=== PATIENT | female | born 1985 | race African-American/Black ===

== ENCOUNTER 2022-04-19 15:56 | Inpatient (IN) | payer MEDICARE, MEDICAID, SELFPAY ==
[2022-04-19 16:13] VITALS: BP 116/74; BP 123/62; PULSE 78; PULSE 89; RESP 18; TEMP 36.5; O2SAT 95; O2SAT 98; BMI 37.0
[2022-04-19 16:50] LABS: Appearance Urine Clear; Color Urine Yellow; Glucose Urine UA Negative (Negative); Leukocyte Esterase Urine Negative (Negative); Nitrite Urine Negative (Negative); Urine Blood Negative (Negative); Urine Ketones Negative (Negative); Urine Protein Negative (Neg-Trace)
[2022-04-19 16:53] LABS: Bacteria Urine None Seen (None Seen); Hyaline Casts Urine 0-2 /LPF (0-2); RBC Urine 0-2 /HPF (0-2); WBC Urine 0-5 /HPF (0-5)
--- NOTE | 2022-04-19 17:00 | ED_ITS ---
HPI - General Adult General Chief complaint: Psychiatric Symptoms Stated complaint: crisis Time Seen by Provider: 04/19/22 16:13 Source: patient and police History of Present Illness HPI narrative: This is a 37-year-old female with a history of psychosis, who has been in a respite facility for the last 4 or 5 days. The patient apparently has not been cooperative with taking medications and has become paranoid and agitated. Patient is somewhat evasive when asked about taking medicines, states that she thought they were p.r.n.. The patient denies wanting to hurt herself or anybody else. She denies hearing voices. She denies any physical complaints except mild intermittent toothache, and a callus on her foot. Related Data Home Medications Medication Instructions Recorded Confirmed clonidine HCl 0.1 mg tablet 1 tab PO BEDTIME 04/19/22 04/19/22 clonidine HCl 0.1 mg tablet 1 tab PO BID PRN Anxiety 04/19/22 04/19/22 guanfacine 1 mg tablet,extended 1 tab PO QAM 04/19/22 04/19/22 release 24 hr (Intuniv ER) hydroxyzine pamoate 25 mg capsule 1 cap PO TID PRN Anxiety 04/19/22 04/19/22 Allergies Allergy/AdvReac Type Severity Reaction Status Date / Time No Known Allergies Allergy Unverified 03/16/20 18:37 Review of Systems Review of Systems: Yes all other systems are reviewed and are negative Constitutional: Constitutional: Reports as per HPI and Denies fever(s) Eyes: Eyes: Reports as per HPI and Reports no additional eye complaints ENT: Reports system reviewed and no additional complaints, except as documented, Reports as per HPI, Denies nasal congestion, Denies nasal discharge and Denies sore throat Comments: Dental pain Cardiovascular: Cardiovascular: Reports as per HPI, Denies chest pain and Denies dyspnea Respiratory: Respiratory: Reports as per HPI, Denies cough and Denies dyspnea Gastrointestinal: Gastrointestinal: Reports as per HPI, Denies abdominal pain, Denies diarrhea and Denies vomiting Genitourinary: Genitourinary: Reports as per HPI, Denies hematuria, Denies urinary frequency and Denies dysuria Musculoskeletal: Musculoskeletal: Reports no additional musculoskeletal complaints and Denies numbness Integumentary/Breasts: Skin/Breast: Reports as per HPI and Denies rash Comments: Callus on foot, chronic Neurologic: Reports as per HPI, Denies focal weakness and Denies numbness Psychiatric: Psychiatric: Reports no additional psychiatric complaints and Reports as per HPI Endocrine: Endocrine: Reports no additional endocrine complaints and Reports as per HPI Hematologic/Lymphatic: Hematologic/Lymphatic: Reports no additional hematologic/lymphatic complaints, Reports as per HPI and Reports other (No peripheral edema) [facility] Social History Social History Alcohol intake: current Alcohol intake frequency: holidays/special occasions only Patient Tobacco Use Status: Current someday Tobacco user Smoked in Last 30 Days: Yes Substance Use Type: Marijuana Substance Use Frequency: Daily Last Used Substance: Just Prior to Admission Any prior treatment program specific to substance use: No Advance Directives: No Advance Directives Information Provided: Yes Physical Exam ED Vital Signs: Vital Signs - 24 hr 04/19/22 16:13 Temperature 97.7 F Pulse Rate 89 Respiratory Rate 18 Blood Pressure 123/62 Pulse Oximetry 95 Oxygen Delivery Method Room Air BMI result Body Mass Index 37.0 Const Other: Patient initially at desk, asking for ketchup and crackers. Patient ambulates normally. Patient does not appear agitated at this time. Affect blunted. General: no acute distress Orientation/consciousness: patient oriented x3 HENMT Head: Yes normal to inspection General nose exam: Normal external nose present Mouth: moist mucous membranes Throat: Yes posterior oropharynx normal, Yes tonsils normal and Yes uvula midline Eyes Eyelids: Yes eyelids normal Conjunctivae: conjunctivae normal Pupils: Equal, round and reactive pupils present Neck Neck: Yes supple Resp Effort & Inspection: normal respiratory effort Auscultation: clear to auscultation bilaterally Cardio Rate: regular rate Rhythm: regular rhythm Heart sounds: S1 normal heart sound present, S2 normal heart sound present, no gallops, no murmurs and no rubs GI Inspection: No distended Palpation (GI): Soft to palpation and nontender Auscultation: normal bowel sounds Skin General skin exam: other (Warm and dry) Neuro General: patient oriented x3 and CN's II-XI intact bilaterally Cranial nerves: Yes Equal, round and reactive pupils present Extrem General: Yes no pedal edema Psych Affect: normal affect Attitude: cooperative Course Course Course Narrative: Patient not compliant with her medications, was reportedly agitated and paranoid. Patient was cooperative my evaluation. Patient is medically clear for psychiatric admission. Medical Decision Making Lab Data Lab results reviewed: Yes I reviewed the patient's lab results. Result diagrams: 04/19/22 20:23 04/19/22 20:23 Labs: Lab Results 04/19/22 04/19/22 04/19/22 Range/Units 16:40 16:40 16:40 WBC (4.8-10.8) X10*3/uL RBC (4.20-5.50) X10*6/uL Hgb (12.0-16.0) g/dl Hct (37.0-47.0) % MCV (80.0-98.0) fL MCH (27.0-33.0) pg MCHC (31.0-35.0) g/dl RDW (11.0-16.0) % Plt Count (160-400) X10*3/uL MPV (9.4-12.3) fL Immature Gran % (Auto) (0.0-0.4) % Neut % (Auto) (45-73) % Lymph % (Auto) (20-40) % [place] % (Auto) (2-11) % Eos % (Auto) (0-4) % Baso % (Auto) (0-2) % Lymph # (Auto) (1.2-4.9) X10*3/uL [place] # (Auto) (0.1-1.2) X10*3/uL Eos # (Auto) (0.0-0.4) X10*3/uL Baso # (Auto) (0.0-0.2) X10*3/uL Abs Immat Gran (auto) (0.00-0.03) X10*3/uL Absolute Neuts (auto) (2.0-8.3) x10*3/uL Absolute Nucleated RBC (0.0-0.012) X10*3/uL Nucleated RBC % (auto) (0.0-0.2) /100WBC Sodium (135-145) mmol/L Potassium (3.3-5.1) mmol/L Chloride (96-108) mmol/L Carbon Dioxide (22-29) mmol/L Anion Gap (12-20) BUN (9-16) mg/dL Creatinine (0.5-1.4) mg/dL Estim Creat Clear Calc Estimated GFR Random Glucose (60-115) mg/dL Calcium (8.4-10.2) mg/dL Total Bilirubin (0.0-1.0) mg/dL AST (5-31) U/L ALT (0-31) U/L Alkaline Phosphatase (39-117) U/L Total Protein (6.5-8.0) g/dL Albumin (3.5-5.0) g/dL Urine Color Yellow Urine Appearance Clear Urine pH 6.0 (5.0-9.0) Ur Specific [place] 1.010 (1.005-1.025) Urine Protein Negative (Neg-Trace) mg/dL Urine Glucose (UA) Negative (Negative) mg/dL Urine Ketones Negative (Negative) mg/dL Urine Blood Negative (Negative) Urine Nitrite Negative (Negative) Ur Leukocyte Esterase Negative (Negative) Urine RBC 0-2 (0-2) /HPF Urine WBC 0-5 (0-5) /HPF Ur Squamous Epith Cells 3-5 (0-2) /HPF Urine Bacteria None Seen (None Seen) Hyaline Casts 0-2 (0-2) /LPF Urine Opiates Screen Not Detected (Not Detect) Urine Fentanyl Screen Not Detected (Not Detect) Ur Barbiturates Screen Not Detected (Not Detect) Ur Phencyclidine Scrn Not Detected (Not Detect) Ur Amphetamines Screen Not Detected (Not Detect) U Benzodiazepines Scrn Not Detected (Not Detect) Urine Cocaine Screen Not Detected (Not Detect) U Marijuana (THC) Screen POSITIVE H (Not Detect) COVID-19 (MYESHA) Negative (Negative) COVID-19 Clin Com See Note 04/19/22 04/19/22 Range/Units 20:23 20:23 WBC 10.7 (4.8-10.8) X10*3/uL RBC 3.99 L (4.20-5.50) X10*6/uL Hgb 12.5 (12.0-16.0) g/dl Hct 37.3 (37.0-47.0) % MCV 93.5 (80.0-98.0) fL MCH 31.3 (27.0-33.0) pg MCHC 33.5 (31.0-35.0) g/dl RDW 12.7 (11.0-16.0) % Plt Count 288 (160-400) X10*3/uL MPV 10.6 (9.4-12.3) fL Immature Gran % (Auto) 0.2 (0.0-0.4) % Neut % (Auto) 57.9 (45-73) % Lymph % (Auto) 31.3 (20-40) % [place] % (Auto) 7.9 (2-11) % Eos % (Auto) 1.9 (0-4) % Baso % (Auto) 0.8 (0-2) % Lymph # (Auto) 3.4 (1.2-4.9) X10*3/uL [place] # (Auto) 0.9 (0.1-1.2) X10*3/uL Eos # (Auto) 0.2 (0.0-0.4) X10*3/uL Baso # (Auto) 0.1 (0.0-0.2) X10*3/uL Abs Immat Gran (auto) 0.02 (0.00-0.03) X10*3/uL Absolute Neuts (auto) 6.2 (2.0-8.3) x10*3/uL Absolute Nucleated RBC 0.000 (0.0-0.012) X10*3/uL Nucleated RBC % (auto) 0.0 (0.0-0.2) /100WBC Sodium 141 (135-145) mmol/L Potassium 3.8 (3.3-5.1) mmol/L Chloride 106 (96-108) mmol/L Carbon Dioxide 25 (22-29) mmol/L Anion Gap 14 (12-20) BUN 10 (9-16) mg/dL Creatinine 0.67 (0.5-1.4) mg/dL Estim Creat Clear Calc 142.3 Estimated GFR > 60 Random Glucose 73 (60-115) mg/dL Calcium 9.0 (8.4-10.2) mg/dL Total Bilirubin 0.3 (0.0-1.0) mg/dL AST 15 (5-31) U/L ALT < 6 (0-31) U/L Alkaline Phosphatase 68 (39-117) U/L Total Protein 6.6 (6.5-8.0) g/dL Albumin 4.1 (3.5-5.0) g/dL Urine Color Urine Appearance Urine pH (5.0-9.0) Ur Specific [place] (1.005-1.025) Urine Protein (Neg-Trace) mg/dL Urine Glucose (UA) (Negative) mg/dL Urine Ketones (Negative) mg/dL Urine Blood (Negative) Urine Nitrite (Negative) Ur Leukocyte Esterase (Negative) Urine RBC (0-2) /HPF Urine WBC (0-5) /HPF Ur Squamous Epith Cells (0-2) /HPF Urine Bacteria (None Seen) Hyaline Casts (0-2) /LPF Urine Opiates Screen (Not Detect) Urine Fentanyl Screen (Not Detect) Ur Barbiturates Screen (Not Detect) Ur Phencyclidine Scrn (Not Detect) Ur Amphetamines Screen (Not Detect) U Benzodiazepines Scrn (Not Detect) Urine Cocaine Screen (Not Detect) U Marijuana (THC) Screen (Not Detect) COVID-19 (MYESHA) (Negative) COVID-19 Clin Com Discharge Plan Discharge Clinical Impression: MDD (major depressive disorder) Patient Disposition: Admitted As Inpatient Interventions: Admission Worksheet (ED) Last Done: 04/19/22 23:01 Discharge Date/Time: 04/19/22 23:02
[2022-04-19 17:03] LABS: Amphetamine Screen Urine Not Detected (Not Detect); Barbiturates, Urine Not Detected (Not Detect); Benzodiazepines Screen Urine Not Detected (Not Detect); Cannabinoid Screen Urine POSITIVE (Not Detect); Cocaine Screen Urine Not Detected (Not Detect); Fentanyl, urine Not Detected (Not Detect); Opiate Screen Urine Not Detected (Not Detect); Phencyclidine Screen Urine Not Detected (Not Detect)
[2022-04-19 17:13] LABS: COVID-19 Test Negative (Negative); IDNOW Serial# 16C4AD1C
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
--- NOTE | 2022-04-19 18:08 | MHC.CARE ---
CARE Team spoke to [facility] who reports that pt was evaluated in the community and is an inpatient bedsearch. Evaluating clinician reports that pt was administratively discharged from [facility] on 04/15 and was accepted to [facility] on 04/16 without knowing that information. Pt has been displaying bizarre and unpredictable behaviors at [facility]. Pt has been refusing medications and has a hx of aggressive and impulsive behaviors.
[2022-04-19 20:27] LABS: MANUAL DIFF FLAG NO
[2022-04-19 20:29] LABS: Basophils Absolute Auto 0.1 X10*3/uL (0.0-0.2); Basophils Percent Auto 0.8 % (0-2); Eosinophils Absolute Auto 0.2 X10*3/uL (0.0-0.4); Eosinophils Percent Auto 1.9 % (0-4); Hematocrit 37.3 % (37.0-47.0); Hemoglobin 12.5 g/dl (12.0-16.0); Imm Gran Abs Auto 0.02 X10*3/uL (0.00-0.03); Imm Gran Pct Auto 0.2 % (0.0-0.4); Lymphocytes Absolute Auto 3.4 X10*3/uL (1.2-4.9); Lymphocytes Percent Auto 31.3 % (20-40); Mean Corpuscular HGB Conc 33.5 g/dl (31.0-35.0); Mean Corpuscular Hemoglobin 31.3 pg (27.0-33.0); Mean Corpuscular Volume 93.5 fL (80.0-98.0); Mean Platelet Volume 10.6 fL (9.4-12.3); Monocytes Absolute Auto 0.9 X10*3/uL (0.1-1.2); Monocytes Percent Auto 7.9 % (2-11); Neutrophils Absolute Auto 6.2 x10*3/uL (2.0-8.3); Neutrophils Percent Auto 57.9 % (45-73); Platelet Count 288 X10*3/uL (160-400); Red Blood Count 3.99 X10*6/uL (4.20-5.50); Red Cell Distribution Width 12.7 % (11.0-16.0); White Blood Count 10.7 X10*3/uL (4.8-10.8)
[2022-04-19 20:50] LABS: Alanine Aminotransferase < 6 U/L (0-31); Albumin Level 4.1 g/dL (3.5-5.0); Alkaline Phosphatase 68 U/L (39-117); Anion Gap 14 (12-20); Aspartate Amino Transferase 15 U/L (5-31); Bilirubin Total 0.3 mg/dL (0.0-1.0); Blood Urea Nitrogen 10 mg/dL (9-16); Carbon Dioxide 25 mmol/L (22-29); Chloride 106 mmol/L (96-108); Creatinine Clr Calc Pharmacy 142.3; Estimated Glomerular Filt Rate > 60; Glucose Random 73 mg/dL (60-115); Potassium 3.8 mmol/L (3.3-5.1); Sodium 141 mmol/L (135-145); Total Protein 6.6 g/dL (6.5-8.0)
--- NOTE | 2022-04-20 07:23 | PHA.MEDREC ---
Pharmacy Consult ? Medication Reconciliation RN has completed the medication reconciliation. Pharmacy reviewed
[2022-04-20 08:32] LABS: Cholesterol 143 mg/dL; HDL Cholesterol 48 mg/dL; LDL Cholesterol Calculated 81 mg/dl; Magnesium 1.9 mg/dL (1.6-2.6); Triglycerides 70 mg/dL
[2022-04-20] MEDS: guanFACINE HCl ER 1 MG TAB.ER.24H PO (08:40)
[2022-04-20 08:41] LABS: Estimated Average Glucose 108 mg/dL; Hemoglobin A1c % 5.4 %
[2022-04-20 08:55] LABS: Free T4 (Free Thyroxine) 0.85 ng/dL (0.71-1.85); Thyroid Stimulating Hormone 2.34 uIU/mL (0.32-4.0)
[2022-04-20 09:07] LABS: Folate 11.6 ng/mL (> or = 4.0); Vitamin B12 205 pg/mL (200-900)
[2022-04-20] MEDS: methADONE HCl 20 MG/2 ML ORAL.CONC 25 MG PO (09:17)
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
[2022-04-20] MEDS: polyethylene glycoL 3350 17 GM POWD.PACK PO ×2 (10:44→20:37)
[2022-04-20] MEDS: Milk of Magnesia 30 ML ORAL.SUSP PO (14:17)
[2022-04-20] MEDS: Sennosides/Docusate Sodium TABLET 1 TAB PO (14:43)
[2022-04-20] MEDS: Hydrocortisone 2.5 % Rectal Cr 30 GM TUBE 1 APPL PR ×2 (15:50→18:54)
[2022-04-20] MEDS: LORazepam 1 MG TABLET PO ×2 (15:50→18:44)
[2022-04-20 18:00] VITALS: BP 128/76; PULSE 72; TEMP 36.7; O2SAT 98
[2022-04-20] MEDS: cloNIDine HCL 0.1 MG TABLET PO ×2 (18:44→20:37)
[2022-04-20] MEDS: hydrOXYzine HCL 25 MG TABLET PO (18:45)
[2022-04-20] MEDS: Ibuprofen 600 MG TABLET PO (18:45)
[2022-04-20] MEDS: Mineral Oil/Petrolatum,White 106 GM Tube 1 APPL TOPICAL (18:55)
[2022-04-20] MEDS: Acetaminophen 325 MG TABLET 650 MG PO (20:34)
[2022-04-20] MEDS: traZODone HCL 50 MG TABLET PO (20:34)
[2022-04-21] MEDS: Ibuprofen 600 MG TABLET PO ×2 (05:00→13:39)
[2022-04-21] MEDS: Hydrocortisone 2.5 % Rectal Cr 30 GM TUBE 1 APPL PR ×3 (05:00→20:21)
[2022-04-21] MEDS: LORazepam 1 MG TABLET PO ×2 (05:00→13:51)
[2022-04-21] MEDS: Acetaminophen 325 MG TABLET 650 MG PO ×2 (05:00→13:39)
[2022-04-21 06:00] VITALS: BP 117/70; PULSE 62; RESP 20; TEMP 36.6; O2SAT 100
[2022-04-21] MEDS: guanFACINE HCl ER 1 MG TAB.ER.24H PO (08:25)
[2022-04-21] MEDS: methADONE HCl 20 MG/2 ML ORAL.CONC 25 MG PO (08:25)
[2022-04-21] MEDS: polyethylene glycoL 3350 17 GM POWD.PACK PO (08:27)
[2022-04-21] MEDS: hydrOXYzine HCL 25 MG TABLET PO ×2 (08:34→22:04)
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
[2022-04-21] MEDS: Mineral Oil/Petrolatum,White 106 GM Tube 1 APPL TOPICAL (15:00)
[2022-04-21 16:30] VITALS: PULSE 72; TEMP 36.6; O2SAT 98
[2022-04-21] MEDS: Ibuprofen 800 MG TABLET PO ×2 (18:26→23:06)
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
[2022-04-21] MEDS: oxyCODONE HCl Immed Release 5 MG TABLET PO (20:13)
[2022-04-21] MEDS: Lidocaine 5 % Ointment 35 GM 1 APPL TOPICAL ×2 (20:14→23:07)
[2022-04-21] MEDS: cloNIDine HCL 0.1 MG TABLET PO ×2 (20:14→22:04)
[2022-04-22] MEDS: oxyCODONE HCl Immed Release 5 MG TABLET PO ×3 (01:32→18:45)
[2022-04-22] MEDS: cloNIDine HCL 0.1 MG TABLET PO ×2 (01:33→20:20)
[2022-04-22] MEDS: Ibuprofen 800 MG TABLET PO ×2 (06:02→12:05)
[2022-04-22] MEDS: Acetaminophen 325 MG TABLET 650 MG PO ×2 (06:03→12:04)
[2022-04-22] MEDS: Lidocaine 5 % Ointment 35 GM 1 APPL TOPICAL ×3 (06:04→20:22)
[2022-04-22] MEDS: guanFACINE HCl ER 1 MG TAB.ER.24H PO (09:12)
[2022-04-22] MEDS: Sennosides/Docusate Sodium TABLET 1 TAB PO (09:12)
[2022-04-22] MEDS: polyethylene glycoL 3350 17 GM POWD.PACK PO (09:13)
[2022-04-22] MEDS: methADONE HCl 20 MG/2 ML ORAL.CONC 25 MG PO (09:13)
[2022-04-22] MEDS: LORazepam 1 MG TABLET PO ×2 (10:46→20:19)
[2022-04-22] MEDS: hydrOXYzine HCL 25 MG TABLET PO ×2 (12:05→18:45)
[2022-04-22] MEDS: LORazepam 1 MG TABLET 2 MG PO (13:43)
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
[2022-04-22] MEDS: HaloperidoL 5 MG TABLET PO ×2 (13:56→20:19)
[2022-04-22] MEDS: Mineral Oil/Petrolatum,White 106 GM Tube 1 APPL TOPICAL (13:57)
--- NOTE | 2022-04-22 16:54 | HO.PSYCHPN ---
Subjective Subjective Date of Service: 04/22/22 Reason For Visit: crisis Subjective Notes: Valdes Warning and Conditional Voluntary Healthcare Proxy: No Guardianship: No Medical Problems Affecting Mental Status: No Interim History: Discussed with team. Pt was administered haldol 5 mg and ativan 2 mg as stat order today due to agitation, threatening another pt, verbally aggressive, yelling. Reviewed hospitalist consult for hemorrhoids, much appreciated. I spoke with pt. She states I flipped out, it was due to the pain. Says oxycodone has been helping, Thank god for the oxy. She also reports benefit on the haldol, once they gave me the pills she felt calm, willing to trial haldol and ativan as scheduled medications. Pt says she is not really a fan of intuniv but i?ll take it just in case. Pt discloses other stressors for her agitation, i.e. this environment itself is a little, trails off and says you now what i mean. Says it wont be as tense mentally when I get out into the world, i'm an outdoorsy person. 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 I just showed my feelings. Medication Compliance: Yes Side effects from medications: No Attending Groups: Yes Review of Systems Acute medical concerns: No Medical Review of Systems: unchanged Mental Status Exam Mental Status Exam Narrative: A&O. In hospital attire, overweight, somewhat unkempt. Good eye contact, attentive. No Tics or Tremors. No abnormal involuntary movements. Guarded, difficult to engage, but ultimately cooperative with interview. Non-pressured speech, spontaneous with regular rate and rhythm, normal volume and prosody. No prolonged speech latency or dysarthria. Mood is [does not state], affect is suspicious, but calmer s/p haldol. Denies SI/SIB/HI upon inquiry. Denies A/VH. Endorses paranoid delusional thought content. Thoughts are ruminative. No known cognitive or memory impairment. Insight/ Judgment limited but adequate. Diagnostics Vital Signs (24Hr): BMI result Body Mass Index 37.0 Labs Results: 04/23/22 08:13 04/19/22 20:23 Medications Medications Current Medications Acetaminophen (Acetaminophen 325 Mg Tablet) 650 mg PO Q6H PRN PRN Reason: Headache/Pain Mild Scale (1-3) Last Admin: 04/22/22 12:04 Dose: 650 mg Al Hydroxide/Mg Hydroxide (Magnesium Hydrox/Alum Hydrox 30 Ml Oral.Susp) 30 ml PO Q6H PRN PRN Reason: Heartburn/Nausea Benzocaine (Benzocaine 20 % Oral Gel 9 Gm Tube) 1 appl MUCOUS MEM QID PRN PRN Reason: dental pain Clonidine HCl (Clonidine Hcl 0.1 Mg Tablet) 0.1 mg PO BEDTIME KALINA; Protocol Last Admin: 04/21/22 22:04 Dose: 0.1 mg Clonidine HCl (Clonidine Hcl 0.1 Mg Tablet) 0.1 mg PO BID PRN; Protocol PRN Reason: Anxiety Last Admin: 04/22/22 01:33 Dose: 0.1 mg Diphenhydramine HCl (Diphenhydramine Hcl 25 Mg Capsule) 50 mg PO Q4H PRN PRN Reason: agitation Guanfacine HCl (Guanfacine Hcl Er 1 Mg Tab.Er.24h) 1 mg PO DAILY [facility] Last Admin: 04/22/22 09:12 Dose: 1 mg Haloperidol (Haloperidol 5 Mg Tablet) 5 mg PO Q4H PRN PRN Reason: agitation Last Admin: 04/22/22 13:56 Dose: 5 mg Hydrocortisone (Hydrocortisone 2.5 % Rectal Cr 30 Gm Tube) 1 appl [place] BID [facility]INA Stop: 04/28/22 20:59 Last Admin: 04/22/22 09:15 Dose: Not Given Hydroxyzine HCl (Hydroxyzine Hcl 25 Mg Tablet) 25 mg PO Q6H PRN PRN Reason: Anxiety Last Admin: 04/22/22 12:05 Dose: 25 mg Hydroxyzine HCl (Hydroxyzine Hcl 25 Mg Tablet) 25 mg PO TID PRN PRN Reason: Anxiety Last Admin: 04/20/22 18:45 Dose: 25 mg Ibuprofen (Ibuprofen 800 Mg Tablet) 800 mg PO TIDWM PRN PRN Reason: Pain, Moderate (Pain Scale 4-6 Last Admin: 04/22/22 12:05 Dose: 800 mg Lidocaine (Lidocaine 5 % Ointment 35 Gm) 1 appl TOPICAL Q4H PRN; Protocol PRN Reason: Hemorrhoids Last Admin: 04/22/22 13:56 Dose: 1 appl Lorazepam (Lorazepam 1 Mg Tablet) 1 mg PO BID PRN PRN Reason: anxiety, agitation Last Admin: 04/22/22 10:46 Dose: 1 mg Lorazepam (Lorazepam 1 Mg Tablet) 2 mg PO Q4H PRN PRN Reason: agitation Last Admin: 04/22/22 13:43 Dose: 2 mg Magnesium Hydroxide (Milk Of Magnesia 30 Ml Oral.Susp) 30 ml PO DAILY PRN PRN Reason: Constipation Last Admin: 04/20/22 14:17 Dose: 30 ml Methadone HCl (Methadone Hcl 20 Mg/2 Ml Oral.Conc) 25 mg PO DAILY [facility] Last Admin: 04/22/22 09:13 Dose: 25 mg Multi-Ingred Cream/Lotion/Oil/Oint (Mineral Oil/Petrolatum,White 106 Gm Tube) 1 appl TOPICAL QID PRN PRN Reason: eczema Last Admin: 04/22/22 13:57 Dose: 1 appl Oxycodone HCl (Oxycodone Hcl Immed Release 5 Mg Tablet) 5 mg PO Q6H PRN PRN Reason: Pain, Severe (Pain Scale 7-10) Last Admin: 04/22/22 09:12 Dose: 5 mg Polyethylene Glycol (Polyethylene Glycol 3350 17 Gm Powd.Pack) 17 gm PO DAILY [facility] Last Admin: 04/22/22 09:13 Dose: 17 gm Senna/Docusate Sodium (Sennosides/Docusate Sodium Tablet) 1 tab PO DAILY [facility] Last Admin: 04/22/22 09:12 Dose: 1 tab Trazodone HCl (Trazodone Hcl 50 Mg Tablet) 50 mg PO BEDTIME PRN PRN Reason: Insomnia Last Admin: 04/20/22 20:34 Dose: 50 mg Allergies Allergies Allergy/AdvReac Type Severity Reaction Status Date / Time No Known Allergies Allergy Unverified 03/16/20 18:37 Assessment & Plan Assessment & Plan (1) Schizoaffective disorder, depressive type: Status: Acute Code(s): F25.1 - Schizoaffective disorder, depressive type (2) Opioid use disorder: Status: Acute Code(s): F11.90 - Opioid use, unspecified, uncomplicated (3) Polysubstance abuse: Status: Acute Code(s): F19.10 - Other psychoactive substance abuse, uncomplicated Plan Oneyda is a 37 y.o. female who carries a dx of schizoaffective disorder and opioid use disorder. She presented to [facility] on 04/19/22 due to being administratively discharged from respite 4 or 5 days after non-adherence with her medications and becoming paranoid and agitated. She told crisis workers that she believes ?people are attacking me,? observed to be responding to internal stimuli. Pt also reports increasing anxiety and depression due to the of a friend 2 weeks ago to an overdose. She is also missing her son (resides with father, hx of foster care). Plan: Will continue intuniv 1 mg QAM and clonidine 0.1 mg QHS, vitals wnl. Has additional clonidine 0.1 mg BID PRN dose for hyperarousal, agitation. Will start ativan 1 mg BID PRN for agitation, anxiety. Pt understands this is a controlled substance. She is on methadone, which makes this medication not ideal. However, she is highly mistrustful of medication and providers and she is in a controlled/ structured environment, thus benefit may outweigh risk in order to promote collaboration, engagement, and buy-in for further med management. 04/21: Placed consult with hospitalist for hemorrhoids 04/22: Pt given oxycodone, lidocaine gel for hemorrhoids. Asks for ensure with her meals. Will start haldol 5 mg BID for paranoid thoughts, mood stability and schedule ativan 1 mg BID for her anxiety, agitation. Q15 min safety checks, CV Monitor response to medications. Monitor for safety in the milieu. Discharge on stabilization. Patient seen. Chart reviewed. Discussed with team. Obtain collateral contact info?as needed I spent minutes with the patient and/or on the patient floor today, greater than?50% of which was spent counseling/coordinating care. Patient educated on: medication risk/benefits Reason for contiued inpatient stay Substantial Risk for: inability to function, rapid decompensation and med/psych decompensation
[2022-04-22 18:00] VITALS: BP 104/60; PULSE 126; RESP 18; O2SAT 98
[2022-04-22] MEDS: Hydrocortisone 2.5 % Rectal Cr 30 GM TUBE 1 APPL PR (20:23)
[2022-04-23 08:05] VITALS: BP 109/63; PULSE 51; RESP 16; TEMP 37.1; O2SAT 99
[2022-04-23] MEDS: LORazepam 1 MG TABLET PO ×2 (08:30→19:31)
[2022-04-23] MEDS: Sennosides/Docusate Sodium TABLET 1 TAB PO (08:30)
[2022-04-23] MEDS: guanFACINE HCl ER 1 MG TAB.ER.24H PO (08:30)
[2022-04-23] MEDS: HaloperidoL 5 MG TABLET PO ×2 (08:30→19:31)
[2022-04-23] MEDS: methADONE HCl 20 MG/2 ML ORAL.CONC 25 MG PO (08:30)
[2022-04-23] MEDS: oxyCODONE HCl Immed Release 5 MG TABLET PO ×3 (08:38→21:32)
[2022-04-23] MEDS: Hydrocortisone 2.5 % Rectal Cr 30 GM TUBE 1 APPL PR ×2 (08:38→19:33)
[2022-04-23 08:43] LABS: MANUAL DIFF FLAG NO
[2022-04-23 08:48] LABS: Basophils Absolute Auto 0.1 X10*3/uL (0.0-0.2); Basophils Percent Auto 0.7 % (0-2); Eosinophils Absolute Auto 0.2 X10*3/uL (0.0-0.4); Eosinophils Percent Auto 2.9 % (0-4); Hematocrit 32.7 % (37.0-47.0); Hemoglobin 11.1 g/dl (12.0-16.0); Imm Gran Abs Auto 0.03 X10*3/uL (0.00-0.03); Imm Gran Pct Auto 0.4 % (0.0-0.4); Lymphocytes Absolute Auto 2.5 X10*3/uL (1.2-4.9); Mean Corpuscular HGB Conc 33.9 g/dl (31.0-35.0); Mean Corpuscular Hemoglobin 31.9 pg (27.0-33.0); Mean Platelet Volume 11.1 fL (9.4-12.3); Monocytes Absolute Auto 0.8 X10*3/uL (0.1-1.2); Monocytes Percent Auto 10.1 % (2-11); Neutrophils Absolute Auto 4.6 x10*3/uL (2.0-8.3); Neutrophils Percent Auto 55.9 % (45-73); Platelet Count 244 X10*3/uL (160-400); Red Blood Count 3.48 X10*6/uL (4.20-5.50); Red Cell Distribution Width 13.1 % (11.0-16.0); White Blood Count 8.3 X10*3/uL (4.8-10.8)
[2022-04-23] MEDS: Acetaminophen 325 MG TABLET 650 MG PO ×2 (10:06→16:47)
[2022-04-23] MEDS: Ibuprofen 800 MG TABLET PO ×2 (10:07→16:41)
[2022-04-23] MEDS: Lidocaine 5 % Ointment 35 GM 1 APPL TOPICAL (16:49)
[2022-04-23] MEDS: Mineral Oil/Petrolatum,White 106 GM Tube 1 APPL TOPICAL (16:49)
[2022-04-23 17:18] VITALS: BP 131/68; PULSE 57; RESP 16; TEMP 36.6; O2SAT 97
[2022-04-23] MEDS: cloNIDine HCL 0.1 MG TABLET PO (19:31)
--- NOTE | 2022-04-23 20:32 | HO.PSYCHPN ---
Subjective Subjective Date of Service: 04/23/22 Reason For Visit: crisis Subjective Notes: Valdes Warning Interim History: Discussed with team. Met with pt. Says she is tired, I need rest. Continues to c/o hemorrhoid pain, says her pain is a 5/10, reports oxycodone helps, continues to have bleeding. Reports she slept all day because she did not sleep last night. Still constipated but says its getting better, declines offer to increase miralax. Says she feels a little better, thinks haldol helped me sit still and concentrate better. Medication Compliance: Yes Side effects from medications: No Attending Groups: Intermittent Review of Systems Acute medical concerns: No Medical Review of Systems: unchanged Mental Status Exam Mental Status Exam Narrative: A&O. In hospital attire, overweight, somewhat unkempt. Good eye contact, attentive. No Tics or Tremors. No abnormal involuntary movements. Guarded, difficult to engage, but ultimately cooperative with interview. Non-pressured speech, spontaneous with regular rate and rhythm, normal volume and prosody. No prolonged speech latency or dysarthria. Mood is better, affect is suspicious, but calmer s/p haldol. Denies SI/SIB/HI upon inquiry. Denies A/VH. Endorses paranoid delusional thought content. Thoughts are ruminative. No known cognitive or memory impairment. Insight/ Judgment limited but adequate. Diagnostics Vital Signs (24Hr): Vital Signs - 24 hr 04/23/22 08:05 04/23/22 17:18 Temperature 98.8 F 98 F Pulse Rate 51 57 Respiratory Rate 16 16 Blood Pressure 109/63 131/68 Pulse Oximetry 99 97 Oxygen Delivery Method Room Air Room Air BMI result Body Mass Index 37.0 Labs Results: 04/23/22 08:13 04/19/22 20:23 Labs: Laboratory Results - last 48 hr 04/23/22 08:13 WBC 8.3 RBC 3.48 L Hgb 11.1 L Hct 32.7 L MCV 94.0 MCH 31.9 MCHC 33.9 RDW 13.1 Plt Count 244 MPV 11.1 Immature Gran % (Auto) 0.4 Neut % (Auto) 55.9 Lymph % (Auto) 30.0 [place] % (Auto) 10.1 Eos % (Auto) 2.9 Baso % (Auto) 0.7 Lymph # (Auto) 2.5 [place] # (Auto) 0.8 Eos # (Auto) 0.2 Baso # (Auto) 0.1 Abs Immat Gran (auto) 0.03 Absolute Neuts (auto) 4.6 Absolute Nucleated RBC 0.000 Nucleated RBC % (auto) 0.0 Medications Medications Current Medications Acetaminophen (Acetaminophen 325 Mg Tablet) 650 mg PO Q6H PRN PRN Reason: Headache/Pain Mild Scale (1-3) Last Admin: 04/23/22 16:47 Dose: 650 mg Al Hydroxide/Mg Hydroxide (Magnesium Hydrox/Alum Hydrox 30 Ml Oral.Susp) 30 ml PO Q6H PRN PRN Reason: Heartburn/Nausea Benzocaine (Benzocaine 20 % Oral Gel 9 Gm Tube) 1 appl MUCOUS MEM QID PRN PRN Reason: dental pain Clonidine HCl (Clonidine Hcl 0.1 Mg Tablet) 0.1 mg PO BEDTIME KALINA; Protocol Last Admin: 04/22/22 20:20 Dose: 0.1 mg Clonidine HCl (Clonidine Hcl 0.1 Mg Tablet) 0.1 mg PO BID PRN; Protocol PRN Reason: Anxiety Last Admin: 04/23/22 19:31 Dose: 0.1 mg Diphenhydramine HCl (Diphenhydramine Hcl 25 Mg Capsule) 50 mg PO Q4H PRN PRN Reason: agitation Guanfacine HCl (Guanfacine Hcl Er 1 Mg Tab.Er.24h) 1 mg PO DAILY [facility] Last Admin: 04/23/22 08:30 Dose: 1 mg Haloperidol (Haloperidol 5 Mg Tablet) 5 mg PO BID K[facility]INA Last Admin: 04/23/22 19:31 Dose: 5 mg Hydrocortisone (Hydrocortisone 2.5 % Rectal Cr 30 Gm Tube) 1 appl [place] BID KALINA Stop: 04/28/22 20:59 Last Admin: 04/23/22 19:33 Dose: 1 appl Hydroxyzine HCl (Hydroxyzine Hcl 25 Mg Tablet) 25 mg PO Q6H PRN PRN Reason: Anxiety Last Admin: 04/22/22 12:05 Dose: 25 mg Hydroxyzine HCl (Hydroxyzine Hcl 25 Mg Tablet) 25 mg PO TID PRN PRN Reason: Anxiety Last Admin: 04/22/22 18:45 Dose: 25 mg Ibuprofen (Ibuprofen 800 Mg Tablet) 800 mg PO TIDWM PRN PRN Reason: Pain, Moderate (Pain Scale 4-6 Last Admin: 04/23/22 16:41 Dose: 800 mg Lidocaine (Lidocaine 5 % Ointment 35 Gm) 1 appl TOPICAL Q4H PRN; Protocol PRN Reason: Hemorrhoids Last Admin: 04/23/22 16:49 Dose: 1 appl Lorazepam (Lorazepam 1 Mg Tablet) 2 mg PO Q4H PRN PRN Reason: agitation Last Admin: 04/22/22 13:43 Dose: 2 mg Lorazepam (Lorazepam 1 Mg Tablet) 1 mg PO BID [facility] Last Admin: 04/23/22 19:31 Dose: 1 mg Magnesium Hydroxide (Milk Of Magnesia 30 Ml Oral.Susp) 30 ml PO DAILY PRN PRN Reason: Constipation Last Admin: 04/20/22 14:17 Dose: 30 ml Methadone HCl (Methadone Hcl 20 Mg/2 Ml Oral.Conc) 25 mg PO DAILY [facility] Last Admin: 04/23/22 08:30 Dose: 25 mg Multi-Ingred Cream/Lotion/Oil/Oint (Mineral Oil/Petrolatum,White 106 Gm Tube) 1 appl TOPICAL QID PRN PRN Reason: eczema Last Admin: 04/23/22 16:49 Dose: 1 appl Oxycodone HCl (Oxycodone Hcl Immed Release 5 Mg Tablet) 5 mg PO Q6H PRN PRN Reason: Pain, Severe (Pain Scale 7-10) Last Admin: 04/23/22 16:42 Dose: 5 mg Polyethylene Glycol (Polyethylene Glycol 3350 17 Gm Powd.Pack) 17 gm PO DAILY [facility] Last Admin: 04/23/22 10:20 Dose: Not Given Senna/Docusate Sodium (Sennosides/Docusate Sodium Tablet) 1 tab PO DAILY [facility] Last Admin: 04/23/22 08:30 Dose: 1 tab Trazodone HCl (Trazodone Hcl 50 Mg Tablet) 50 mg PO BEDTIME PRN PRN Reason: Insomnia Last Admin: 04/20/22 20:34 Dose: 50 mg Allergies Allergies Allergy/AdvReac Type Severity Reaction Status Date / Time No Known Allergies Allergy Unverified 03/16/20 18:37 Assessment & Plan Assessment & Plan (1) Schizoaffective disorder, depressive type: Status: Acute Code(s): F25.1 - Schizoaffective disorder, depressive type (2) Opioid use disorder: Status: Acute Code(s): F11.90 - Opioid use, unspecified, uncomplicated (3) Polysubstance abuse: Status: Acute Code(s): F19.10 - Other psychoactive substance abuse, uncomplicated Plan Oneyda is a 37 y.o. female who carries a dx of schizoaffective disorder and opioid use disorder. She presented to [facility] on 04/19/22 due to being administratively discharged from respite 4 or 5 days after non-adherence with her medications and becoming paranoid and agitated. She told crisis workers that she believes ?people are attacking me,? observed to be responding to internal stimuli. Pt also reports increasing anxiety and depression due to the of a friend 2 weeks ago to an overdose. She is also missing her son (resides with father, hx of foster care). Plan: Will continue intuniv 1 mg QAM and clonidine 0.1 mg QHS, vitals wnl. Has additional clonidine 0.1 mg BID PRN dose for hyperarousal, agitation. Will start ativan 1 mg BID PRN for agitation, anxiety. Pt understands this is a controlled substance. She is on methadone, which makes this medication not ideal. However, she is highly mistrustful of medication and providers and she is in a controlled/ structured environment, thus benefit may outweigh risk in order to promote collaboration, engagement, and buy-in for further med management. 04/21: Placed consult with hospitalist for hemorrhoids 04/22: Pt given oxycodone, lidocaine gel for hemorrhoids. Asks for ensure with her meals. Will start haldol 5 mg BID for paranoid thoughts, mood stability and schedule ativan 1 mg BID for her anxiety, agitation. 04/23: continue to monitor benefit on medication Q15 min safety checks, CV Monitor response to medications. Monitor for safety in the milieu. Discharge on stabilization. Patient seen. Chart reviewed. Discussed with team. Obtain collateral contact info?as needed I spent minutes with the patient and/or on the patient floor today, greater than?50% of which was spent counseling/coordinating care. Patient educated on: diagnosis, medication risk/benefits and therapeutic strategies Reason for contiued inpatient stay Substantial Risk for: inability to function, rapid decompensation and med/psych decompensation
[2022-04-24] MEDS: Ibuprofen 800 MG TABLET PO ×3 (01:21→16:49)
[2022-04-24 08:07] VITALS: BP 126/70; PULSE 81; RESP 16; TEMP 36.8; O2SAT 97
[2022-04-24] MEDS: Acetaminophen 325 MG TABLET 650 MG PO ×2 (09:06→16:49)
[2022-04-24] MEDS: Sennosides/Docusate Sodium TABLET 1 TAB PO (09:07)
[2022-04-24] MEDS: methADONE HCl 20 MG/2 ML ORAL.CONC 25 MG PO (09:07)
[2022-04-24] MEDS: HaloperidoL 5 MG TABLET PO ×2 (09:07→19:30)
[2022-04-24] MEDS: guanFACINE HCl ER 1 MG TAB.ER.24H PO (09:07)
[2022-04-24] MEDS: LORazepam 1 MG TABLET PO ×2 (09:07→19:30)
[2022-04-24 09:08] LABS: MANUAL DIFF FLAG NO
[2022-04-24 09:11] LABS: Basophils Absolute Auto 0.1 X10*3/uL (0.0-0.2); Basophils Percent Auto 0.7 % (0-2); Eosinophils Absolute Auto 0.2 X10*3/uL (0.0-0.4); Eosinophils Percent Auto 2.5 % (0-4); Hematocrit 33.6 % (37.0-47.0); Hemoglobin 11.9 g/dl (12.0-16.0); Imm Gran Abs Auto 0.03 X10*3/uL (0.00-0.03); Imm Gran Pct Auto 0.3 % (0.0-0.4); Lymphocytes Absolute Auto 2.9 X10*3/uL (1.2-4.9); Lymphocytes Percent Auto 32.6 % (20-40); Mean Corpuscular HGB Conc 35.4 g/dl (31.0-35.0); Mean Corpuscular Hemoglobin 32.6 pg (27.0-33.0); Mean Corpuscular Volume 92.1 fL (80.0-98.0); Mean Platelet Volume 10.9 fL (9.4-12.3); Monocytes Absolute Auto 0.7 X10*3/uL (0.1-1.2); Monocytes Percent Auto 7.6 % (2-11); Neutrophils Percent Auto 56.3 % (45-73); Platelet Count 269 X10*3/uL (160-400); Red Blood Count 3.65 X10*6/uL (4.20-5.50); Red Cell Distribution Width 12.8 % (11.0-16.0); White Blood Count 8.9 X10*3/uL (4.8-10.8)
[2022-04-24] MEDS: oxyCODONE HCl Immed Release 5 MG TABLET PO ×2 (10:07→16:47)
[2022-04-24] MEDS: Hydrocortisone 2.5 % Rectal Cr 30 GM TUBE 1 APPL PR ×2 (12:33→20:31)
[2022-04-24] MEDS: Mineral Oil/Petrolatum,White 106 GM Tube 1 APPL TOPICAL (12:34)
[2022-04-24] MEDS: Lidocaine 5 % Ointment 35 GM 1 APPL TOPICAL ×2 (12:36→16:50)
--- NOTE | 2022-04-24 16:57 | HO.PSYCHPN ---
Subjective Subjective Date of Service: 04/24/22 Reason For Visit: crisis Subjective Notes: Valdes Warning Interim History: Met with pt, discussed with team. Pt says she is feeling a little better. Her sleep is a little better. Wants to talk about aftercare, will discuss with SW. Feels ready to go soon. Says she is just tired, couldnt eat, unable to say why. Likes where she is at with meds. Pain is a lot better, however attributes this to oxycodone, may have hospitalist re-assess closer to discharge and explained to pt that this medication would not be continued on discharge. Mental Status Exam Mental Status Exam Narrative: A&O. In hospital attire, overweight, somewhat unkempt. Good eye contact, attentive. No Tics or Tremors. No abnormal involuntary movements. Guarded, difficult to engage, but ultimately cooperative with interview. Non-pressured speech, spontaneous with regular rate and rhythm, normal volume and prosody. No prolonged speech latency or dysarthria. Mood is better, affect is suspicious, but calmer s/p haldol. Denies SI/SIB/HI upon inquiry. Denies A/VH. Endorses paranoid delusional thought content. Thoughts are ruminative. No known cognitive or memory impairment. Insight/ Judgment limited but adequate. Diagnostics Vital Signs (24Hr): Vital Signs - 24 hr 04/23/22 17:18 04/24/22 08:07 Temperature 98 F 98.3 F Pulse Rate 57 81 Respiratory Rate 16 16 Blood Pressure 131/68 126/70 Pulse Oximetry 97 97 Oxygen Delivery Method Room Air Room Air BMI result Body Mass Index 37.0 Labs Results: 04/24/22 09:02 04/19/22 20:23 Labs: Laboratory Results - last 48 hr 04/23/22 04/24/22 08:13 09:02 WBC 8.3 8.9 RBC 3.48 L 3.65 L Hgb 11.1 L 11.9 L Hct 32.7 L 33.6 L MCV 94.0 92.1 MCH 31.9 32.6 MCHC 33.9 35.4 H RDW 13.1 12.8 Plt Count 244 269 MPV 11.1 10.9 Immature Gran % (Auto) 0.4 0.3 Neut % (Auto) 55.9 56.3 Lymph % (Auto) 30.0 32.6 [place] % (Auto) 10.1 7.6 Eos % (Auto) 2.9 2.5 Baso % (Auto) 0.7 0.7 Lymph # (Auto) 2.5 2.9 [place] # (Auto) 0.8 0.7 Eos # (Auto) 0.2 0.2 Baso # (Auto) 0.1 0.1 Abs Immat Gran (auto) 0.03 0.03 Absolute Neuts (auto) 4.6 5.0 Absolute Nucleated RBC 0.000 0.000 Nucleated RBC % (auto) 0.0 0.0 Medications Medications Current Medications Acetaminophen (Acetaminophen 325 Mg Tablet) 650 mg PO Q6H PRN PRN Reason: Headache/Pain Mild Scale (1-3) Last Admin: 04/24/22 16:49 Dose: 650 mg Al Hydroxide/Mg Hydroxide (Magnesium Hydrox/Alum Hydrox 30 Ml Oral.Susp) 30 ml PO Q6H PRN PRN Reason: Heartburn/Nausea Benzocaine (Benzocaine 20 % Oral Gel 9 Gm Tube) 1 appl MUCOUS MEM QID PRN PRN Reason: dental pain Clonidine HCl (Clonidine Hcl 0.1 Mg Tablet) 0.1 mg PO BEDTIME KALINA; Protocol Last Admin: 04/22/22 20:20 Dose: 0.1 mg Clonidine HCl (Clonidine Hcl 0.1 Mg Tablet) 0.1 mg PO BID PRN; Protocol PRN Reason: Anxiety Last Admin: 04/23/22 19:31 Dose: 0.1 mg Diphenhydramine HCl (Diphenhydramine Hcl 25 Mg Capsule) 50 mg PO Q4H PRN PRN Reason: agitation Guanfacine HCl (Guanfacine Hcl Er 1 Mg Tab.Er.24h) 1 mg PO DAILY [facility] Last Admin: 04/24/22 09:07 Dose: 1 mg Haloperidol (Haloperidol 5 Mg Tablet) 5 mg PO BID [facility] Last Admin: 04/24/22 09:07 Dose: 5 mg Hydrocortisone (Hydrocortisone 2.5 % Rectal Cr 30 Gm Tube) 1 appl [place] BID KALINA Stop: 04/28/22 20:59 Last Admin: 04/24/22 12:33 Dose: 1 appl Hydroxyzine HCl (Hydroxyzine Hcl 25 Mg Tablet) 25 mg PO Q6H PRN PRN Reason: Anxiety Last Admin: 04/22/22 12:05 Dose: 25 mg Hydroxyzine HCl (Hydroxyzine Hcl 25 Mg Tablet) 25 mg PO TID PRN PRN Reason: Anxiety Last Admin: 04/22/22 18:45 Dose: 25 mg Ibuprofen (Ibuprofen 800 Mg Tablet) 800 mg PO TIDWM PRN PRN Reason: Pain, Moderate (Pain Scale 4-6 Last Admin: 04/24/22 16:49 Dose: 800 mg Lactic Acid (Ammonium Lactate 12 % Cream 140 Gm Tube) 1 appl TOPICAL BID PRN PRN Reason: Dry Skin Lidocaine (Lidocaine 5 % Ointment 35 Gm) 1 appl TOPICAL Q4H PRN; Protocol PRN Reason: Hemorrhoids Last Admin: 04/24/22 16:50 Dose: 1 appl Lorazepam (Lorazepam 1 Mg Tablet) 2 mg PO Q4H PRN PRN Reason: agitation Last Admin: 04/22/22 13:43 Dose: 2 mg Lorazepam (Lorazepam 1 Mg Tablet) 1 mg PO BID [facility] Last Admin: 04/24/22 09:07 Dose: 1 mg Magnesium Hydroxide (Milk Of Magnesia 30 Ml Oral.Susp) 30 ml PO DAILY PRN PRN Reason: Constipation Last Admin: 04/20/22 14:17 Dose: 30 ml Methadone HCl (Methadone Hcl 20 Mg/2 Ml Oral.Conc) 25 mg PO DAILY [facility] Last Admin: 04/24/22 09:07 Dose: 25 mg Multi-Ingred Cream/Lotion/Oil/Oint (Mineral Oil/Petrolatum,White 106 Gm Tube) 1 appl TOPICAL QID PRN PRN Reason: eczema Last Admin: 04/24/22 12:34 Dose: 1 appl Oxycodone HCl (Oxycodone Hcl Immed Release 5 Mg Tablet) 5 mg PO Q6H PRN PRN Reason: Pain, Severe (Pain Scale 7-10) Last Admin: 04/24/22 16:47 Dose: 5 mg Polyethylene Glycol (Polyethylene Glycol 3350 17 Gm Powd.Pack) 17 gm PO DAILY [facility] Last Admin: 04/24/22 09:08 Dose: Not Given Senna/Docusate Sodium (Sennosides/Docusate Sodium Tablet) 1 tab PO DAILY [facility] Last Admin: 04/24/22 09:07 Dose: 1 tab Trazodone HCl (Trazodone Hcl 50 Mg Tablet) 50 mg PO BEDTIME PRN PRN Reason: Insomnia Last Admin: 04/20/22 20:34 Dose: 50 mg Allergies Allergies Allergy/AdvReac Type Severity Reaction Status Date / Time No Known Allergies Allergy Unverified 03/16/20 18:37 Assessment & Plan Assessment & Plan (1) Schizoaffective disorder, depressive type: Status: Acute Code(s): F25.1 - Schizoaffective disorder, depressive type (2) Opioid use disorder: Status: Acute Code(s): F11.90 - Opioid use, unspecified, uncomplicated (3) Polysubstance abuse: Status: Acute Code(s): F19.10 - Other psychoactive substance abuse, uncomplicated Plan Oneyda is a 37 y.o. female who carries a dx of schizoaffective disorder and opioid use disorder. She presented to [facility] on 04[place]/22 due to being administratively discharged from respite 4 or 5 days after non-adherence with her medications and becoming paranoid and agitated. She told crisis workers that she believes ?people are attacking me,? observed to be responding to internal stimuli. Pt also reports increasing anxiety and depression due to the of a friend 2 weeks ago to an overdose. She is also missing her son (resides with father, hx of foster care). Plan: Will continue intuniv 1 mg QAM and clonidine 0.1 mg QHS, vitals wnl. Has additional clonidine 0.1 mg BID PRN dose for hyperarousal, agitation. Will start ativan 1 mg BID PRN for agitation, anxiety. Pt understands this is a controlled substance. She is on methadone, which makes this medication not ideal. However, she is highly mistrustful of medication and providers and she is in a controlled/ structured environment, thus benefit may outweigh risk in order to promote collaboration, engagement, and buy-in for further med management. 04/21: Placed consult with hospitalist for hemorrhoids 04/22: Pt given oxycodone, lidocaine gel for hemorrhoids. Asks for ensure with her meals. Will start haldol 5 mg BID for paranoid thoughts, mood stability and schedule ativan 1 mg BID for her anxiety, agitation. 04/23: continue to monitor benefit on medication 04/24: Continue medications, may have hospitalist re-assess hemorrhoids closer to discharged, educated that oxycodone will not be continued on discharge. Q15 min safety checks, CV Monitor response to medications. Monitor for safety in the milieu. Discharge on stabilization. Patient seen. Chart reviewed. Discussed with team. Obtain collateral contact info?as needed I spent minutes with the patient and/or on the patient floor today, greater than?50% of which was spent counseling/coordinating care. Patient educated on: diagnosis, medication risk/benefits and therapeutic strategies Reason for contiued inpatient stay Substantial Risk for: rapid decompensation and med/psych decompensation
[2022-04-24 17:32] VITALS: BP 108/74; PULSE 54; RESP 16; TEMP 36.5; O2SAT 96
[2022-04-24] MEDS: cloNIDine HCL 0.1 MG TABLET PO (19:29)
[2022-04-25 07:00] VITALS: BMI 35.8
[2022-04-25] MEDS: Sennosides/Docusate Sodium TABLET 1 TAB PO (09:07)
[2022-04-25] MEDS: guanFACINE HCl ER 1 MG TAB.ER.24H PO (09:07)
[2022-04-25] MEDS: LORazepam 1 MG TABLET PO ×2 (09:07→19:59)
[2022-04-25] MEDS: HaloperidoL 5 MG TABLET PO ×2 (09:07→19:59)
[2022-04-25] MEDS: methADONE HCl 20 MG/2 ML ORAL.CONC 25 MG PO (09:08)
[2022-04-25] MEDS: polyethylene glycoL 3350 17 GM POWD.PACK PO (09:08)
[2022-04-25] MEDS: Hydrocortisone 2.5 % Rectal Cr 30 GM TUBE 1 APPL PR (09:09)
[2022-04-25] MEDS: oxyCODONE HCl Immed Release 5 MG TABLET PO ×2 (09:18→20:00)
--- NOTE | 2022-04-25 10:26 | HO.PSYCHPN ---
Subjective Subjective Date of Service: 04/25/22 Reason For Visit: crisis Interim History: Met with patient and mental health social worker patient reports that she is doing much better which typewriter tester and mental health social worker agree. Patient denies any SI or HI. She does however remain irritable and guarded and and said she was offended by several of typewriter tester's or social workers question including aftercare regarding options or medication education. Initially patient said that she thinks she will stop taking Haldol; typewriter tester expressed opinion that this is the reason she is doing better and encouraged her to remain on it. She said that she would. Patient does not want an increase in methadone and wanted oxycodone to remain as an option; typewriter tester explained that this was not going to be continued on discharge and patient asked if there was something else available. Seismograph Observer also explained that Ativan is not something that will be continued on discharge which patient did not agree with saying it calms her down. Patient would not tolerate any discussion about it nor give typewriter tester a chance to discuss options or reasons. Patient got offended when mental health social worker asked about patient's plans should she not get into a aftercare program and where she might stay, saying how dare she imply a mcc. Despite being angered by conversation, Patient however remained in overall self-control and said that she was done talking, upset with the conversation and then excused herself. Mental Status Exam Mental Status Exam Narrative: Pt is alert and oriented; behavior is guarded; patient is not in distress; dressed in casual attire with unkempt hair but adequate hygiene; mood is described as ok and affect constricted; eye contact appropriate, sometimes intense; Speech is normal rate, volume and prosody and not pressured; some psychomotor agitation present; thought process is goal directed; Thought content is on her specific needs; easily angered; is on tx; no delusional content or paranoid ideations expressed; denies any SI/HI. There is no evidence of perceptual disturbance and she denies AVH; Patients insight and judgment are impaired but adequate. Diagnostics Vital Signs (24Hr): Vital Signs - 24 hr 04/24/22 17:32 Temperature 97.7 F Pulse Rate 54 Respiratory Rate 16 Blood Pressure 108/74 Pulse Oximetry 96 Oxygen Delivery Method Room Air BMI result Body Mass Index 37.0 Labs Results: 04/24/22 09:02 04/19/22 20:23 Labs: Laboratory Results - last 48 hr 04/24/22 09:02 WBC 8.9 RBC 3.65 L Hgb 11.9 L Hct 33.6 L MCV 92.1 MCH 32.6 MCHC 35.4 H RDW 12.8 Plt Count 269 MPV 10.9 Immature Gran % (Auto) 0.3 Neut % (Auto) 56.3 Lymph % (Auto) 32.6 [place] % (Auto) 7.6 Eos % (Auto) 2.5 Baso % (Auto) 0.7 Lymph # (Auto) 2.9 [place] # (Auto) 0.7 Eos # (Auto) 0.2 Baso # (Auto) 0.1 Abs Immat Gran (auto) 0.03 Absolute Neuts (auto) 5.0 Absolute Nucleated RBC 0.000 Nucleated RBC % (auto) 0.0 Medications Medications Current Medications Acetaminophen (Acetaminophen 325 Mg Tablet) 650 mg PO Q6H PRN PRN Reason: Headache/Pain Mild Scale (1-3) Last Admin: 04/24/22 16:49 Dose: 650 mg Al Hydroxide/Mg Hydroxide (Magnesium Hydrox/Alum Hydrox 30 Ml Oral.Susp) 30 ml PO Q6H PRN PRN Reason: Heartburn/Nausea Benzocaine (Benzocaine 20 % Oral Gel 9 Gm Tube) 1 appl MUCOUS MEM QID PRN PRN Reason: dental pain Clonidine HCl (Clonidine Hcl 0.1 Mg Tablet) 0.1 mg PO BEDTIME KALINA; Protocol Last Admin: 04/24/22 19:29 Dose: 0.1 mg Clonidine HCl (Clonidine Hcl 0.1 Mg Tablet) 0.1 mg PO BID PRN; Protocol PRN Reason: Anxiety Last Admin: 04/23/22 19:31 Dose: 0.1 mg Diphenhydramine HCl (Diphenhydramine Hcl 25 Mg Capsule) 50 mg PO Q4H PRN PRN Reason: agitation Guanfacine HCl (Guanfacine Hcl Er 1 Mg Tab.Er.24h) 1 mg PO DAILY KALINA Last Admin: 04/25/22 09:07 Dose: 1 mg Haloperidol (Haloperidol 5 Mg Tablet) 5 mg PO BID KALINA Last Admin: 04/25/22 09:07 Dose: 5 mg Hydrocortisone (Hydrocortisone 2.5 % Rectal Cr 30 Gm Tube) 1 appl DC BID KALINA Stop: 04/28/22 20:59 Last Admin: 04/25/22 09:09 Dose: 1 appl Hydroxyzine HCl (Hydroxyzine Hcl 25 Mg Tablet) 25 mg PO Q6H PRN PRN Reason: Anxiety Last Admin: 04/22/22 12:05 Dose: 25 mg Hydroxyzine HCl (Hydroxyzine Hcl 25 Mg Tablet) 25 mg PO TID PRN PRN Reason: Anxiety Last Admin: 04/22/22 18:45 Dose: 25 mg Ibuprofen (Ibuprofen 800 Mg Tablet) 800 mg PO TIDWM PRN PRN Reason: Pain, Moderate (Pain Scale 4-6 Last Admin: 04/24/22 16:49 Dose: 800 mg Lactic Acid (Ammonium Lactate 12 % Cream 140 Gm Tube) 1 appl TOPICAL BID PRN PRN Reason: Dry Skin Lidocaine (Lidocaine 5 % Ointment 35 Gm) 1 appl TOPICAL Q4H PRN; Protocol PRN Reason: Hemorrhoids Last Admin: 04/24/22 16:50 Dose: 1 appl Lorazepam (Lorazepam 1 Mg Tablet) 2 mg PO Q4H PRN PRN Reason: agitation Last Admin: 04/22/22 13:43 Dose: 2 mg Lorazepam (Lorazepam 1 Mg Tablet) 1 mg PO BID KALINA Last Admin: 04/25/22 09:07 Dose: 1 mg Magnesium Hydroxide (Milk Of Magnesia 30 Ml Oral.Susp) 30 ml PO DAILY PRN PRN Reason: Constipation Last Admin: 04/20/22 14:17 Dose: 30 ml Methadone HCl (Methadone Hcl 20 Mg/2 Ml Oral.Conc) 25 mg PO DAILY [facility] Last Admin: 04/25/22 09:08 Dose: 25 mg Multi-Ingred Cream/Lotion/Oil/Oint (Mineral Oil/Petrolatum,White 106 Gm Tube) 1 appl TOPICAL QID PRN PRN Reason: eczema Last Admin: 04/24/22 12:34 Dose: 1 appl Oxycodone HCl (Oxycodone Hcl Immed Release 5 Mg Tablet) 5 mg PO Q6H PRN PRN Reason: Pain, Severe (Pain Scale 7-10) Last Admin: 04/25/22 09:18 Dose: 5 mg Polyethylene Glycol (Polyethylene Glycol 3350 17 Gm Powd.Pack) 17 gm PO DAILY KALINA Last Admin: 04/25/22 09:08 Dose: 17 gm Senna/Docusate Sodium (Sennosides/Docusate Sodium Tablet) 1 tab PO DAILY [facility]INA Last Admin: 04/25/22 09:07 Dose: 1 tab Trazodone HCl (Trazodone Hcl 50 Mg Tablet) 50 mg PO BEDTIME PRN PRN Reason: Insomnia Last Admin: 04/20/22 20:34 Dose: 50 mg Allergies Allergies Allergy/AdvReac Type Severity Reaction Status Date / Time No Known Allergies Allergy Unverified 03/16/20 18:37 Assessment & Plan Assessment & Plan (1) Schizoaffective disorder, depressive type: Status: Acute Code(s): F25.1 - Schizoaffective disorder, depressive type (2) Opioid use disorder: Status: Acute Code(s): F11.90 - Opioid use, unspecified, uncomplicated (3) Polysubstance abuse: Status: Acute Code(s): F19.10 - Other psychoactive substance abuse, uncomplicated Plan Oneyda is a 37 y.o. female who carries a dx of schizoaffective disorder and opioid use disorder. She presented to [facility] ED on 04/19/22 due to being administratively discharged from respite 4 or 5 days after non-adherence with her medications and becoming paranoid and agitated. She told crisis workers that she believes ?people are attacking me,? observed to be responding to internal stimuli. Pt also reports increasing anxiety and depression due to the of a friend 2 weeks ago to an overdose. She is also missing her son (resides with father, hx of foster care). Plan: Will continue intuniv 1 mg QAM and clonidine 0.1 mg QHS, vitals wnl. Has additional clonidine 0.1 mg BID PRN dose for hyperarousal, agitation. Will start ativan 1 mg BID PRN for agitation, anxiety. Pt understands this is a controlled substance. She is on methadone, which makes this medication not ideal. However, she is highly mistrustful of medication and providers and she is in a controlled/ structured environment, thus benefit may outweigh risk in order to promote collaboration, engagement, and buy-in for further med management. 04/21: Placed consult with hospitalist for hemorrhoids 04/22: Pt given oxycodone, lidocaine gel for hemorrhoids. Asks for ensure with her meals. Will start haldol 5 mg BID for paranoid thoughts, mood stability and schedule ativan 1 mg BID for her anxiety, agitation. 04/23: continue to monitor benefit on medication 04/24 although patient remains she is consistently demonstrating significantly improved behavior and impulse control and has 04/25 pt irritable, guarded and easily offended/angered but...significantly improved since admission and has been able to demonstrate good behavior and impulse control. Today, even though offended she redirected herself, excusing herself from the room rather than getting out of control or yelling. Plan is to taper off Ativan and oxy. PLAN: Q15 min safety checks, CV Haldol 5mg BID ativan 1mg BID Monitor response to medications. Monitor for safety in the milieu. Discharge on stabilization. Patient seen. Chart reviewed. Discussed with team. Obtain collateral contact info?as needed I spent minutes with the patient and/or on the patient floor today, greater than?50% of which was spent counseling/coordinating care. Patient educated on: diagnosis, medication risk/benefits and substance abuse Informed Consent: further education needed Reason for contiued inpatient stay Substantial Risk for: stable for discharge and rapid decompensation
[2022-04-25] MEDS: Ibuprofen 800 MG TABLET PO (14:07)
[2022-04-25] MEDS: Acetaminophen 325 MG TABLET 650 MG PO (14:08)
[2022-04-25 19:55] VITALS: BP 125/72; PULSE 56
[2022-04-25] MEDS: cloNIDine HCL 0.1 MG TABLET PO (19:55)
[2022-04-25] MEDS: Ammonium Lactate 12 % Cream 140 GM TUBE 1 APPL TOPICAL (20:01)
[2022-04-25] MEDS: Lidocaine 5 % Ointment 35 GM 1 APPL TOPICAL (20:01)
--- NOTE | 2022-04-26 08:02 | P.PNPSI_ITS ---
Subjective Subjective Date of Service: 04/26/22 Reason For Visit: crisis Interim History: Patient a little difficult with which to engage, says she is playing bingo now; however she is polite and calm. Says lidocaine ointment is working for hemorrhoid and understands that oxycodone will be discontinued. Patient remains in overall good behavioral and impulse control, appropriate with peers and staff on the unit. Mental Status Exam Mental Status Exam Narrative: Pt is alert and oriented; behavior is mildly guarded but less so; patient is not in distress; dressed in casual attire, adequately groomed; mood is described as ok and affect constricted; eye contact appropriate, sometimes intense; Speech is normal rate, volume and prosody and not pressured; some psychomotor agitation present; thought process is goal directed; Thought content is on her specific needs; easily irritated; on tx; no delusional content or paranoid ideations expressed; denies any SI/HI. There is no evidence of perceptual disturbance and she denies AVH; Patients insight and judgment are impaired but adequate. Diagnostics Vital Signs (24Hr): Vital Signs - 24 hr 04/25/22 19:55 Pulse Rate 56 Blood Pressure 125/72 BMI result Body Mass Index 35.8 Labs Results: 04/24/22 09:02 04/19/22 20:23 Labs: Laboratory Results - last 48 hr 04/24/22 09:02 WBC 8.9 RBC 3.65 L Hgb 11.9 L Hct 33.6 L MCV 92.1 MCH 32.6 MCHC 35.4 H RDW 12.8 Plt Count 269 MPV 10.9 Immature Gran % (Auto) 0.3 Neut % (Auto) 56.3 Lymph % (Auto) 32.6 [place] % (Auto) 7.6 Eos % (Auto) 2.5 Baso % (Auto) 0.7 Lymph # (Auto) 2.9 [place] # (Auto) 0.7 Eos # (Auto) 0.2 Baso # (Auto) 0.1 Abs Immat Gran (auto) 0.03 Absolute Neuts (auto) 5.0 Absolute Nucleated RBC 0.000 Nucleated RBC % (auto) 0.0 Medications Medications Current Medications Acetaminophen (Acetaminophen 325 Mg Tablet) 650 mg PO Q6H PRN PRN Reason: Headache/Pain Mild Scale (1-3) Last Admin: 04/25/22 14:08 Dose: 650 mg Al Hydroxide/Mg Hydroxide (Magnesium Hydrox/Alum Hydrox 30 Ml Oral.Susp) 30 ml PO Q6H PRN PRN Reason: Heartburn/Nausea Benzocaine (Benzocaine 20 % Oral Gel 9 Gm Tube) 1 appl MUCOUS MEM QID PRN PRN Reason: dental pain Clonidine HCl (Clonidine Hcl 0.1 Mg Tablet) 0.1 mg PO BEDTIME KALINA; Protocol Last Admin: 04/25/22 19:55 Dose: 0.1 mg Clonidine HCl (Clonidine Hcl 0.1 Mg Tablet) 0.1 mg PO BID PRN; Protocol PRN Reason: Anxiety Last Admin: 04/23/22 19:31 Dose: 0.1 mg Diphenhydramine HCl (Diphenhydramine Hcl 25 Mg Capsule) 50 mg PO Q4H PRN PRN Reason: agitation Guanfacine HCl (Guanfacine Hcl Er 1 Mg Tab.Er.24h) 1 mg PO DAILY KALINA Last Admin: 04/25/22 09:07 Dose: 1 mg Haloperidol (Haloperidol 5 Mg Tablet) 5 mg PO BID KALINA Last Admin: 04/25/22 19:59 Dose: 5 mg Hydrocortisone (Hydrocortisone 2.5 % Rectal Cr 30 Gm Tube) 1 appl [place] BID KALINA Stop: 04/28/22 20:59 Last Admin: 04/25/22 20:13 Dose: Not Given Hydroxyzine HCl (Hydroxyzine Hcl 25 Mg Tablet) 25 mg PO Q6H PRN PRN Reason: Anxiety Last Admin: 04/22/22 12:05 Dose: 25 mg Ibuprofen (Ibuprofen 800 Mg Tablet) 800 mg PO TIDWM PRN PRN Reason: Pain, Moderate (Pain Scale 4-6 Last Admin: 04/25/22 14:07 Dose: 800 mg Lactic Acid (Ammonium Lactate 12 % Cream 140 Gm Tube) 1 appl TOPICAL BID PRN PRN Reason: Dry Skin Last Admin: 04/25/22 20:01 Dose: 1 appl Lidocaine (Lidocaine 5 % Ointment 35 Gm) 1 appl TOPICAL Q4H PRN; Protocol PRN Reason: Hemorrhoids Last Admin: 04/25/22 20:01 Dose: 1 appl Lorazepam (Lorazepam 1 Mg Tablet) 2 mg PO Q4H PRN PRN Reason: agitation Last Admin: 04/22/22 13:43 Dose: 2 mg Lorazepam (Lorazepam 1 Mg Tablet) 1 mg PO BID KALINA Last Admin: 04/25/22 19:59 Dose: 1 mg Magnesium Hydroxide (Milk Of Magnesia 30 Ml Oral.Susp) 30 ml PO DAILY PRN PRN Reason: Constipation Last Admin: 04/20/22 14:17 Dose: 30 ml Methadone HCl (Methadone Hcl 20 Mg/2 Ml Oral.Conc) 25 mg PO DAILY [facility] Last Admin: 04/25/22 09:08 Dose: 25 mg Multi-Ingred Cream/Lotion/Oil/Oint (Mineral Oil/Petrolatum,White 106 Gm Tube) 1 appl TOPICAL QID PRN PRN Reason: eczema Last Admin: 04/24/22 12:34 Dose: 1 appl Olanzapine (Olanzapine 5 Mg Tablet) 5 mg PO Q4H PRN PRN Reason: moderate anxiety Oxycodone HCl (Oxycodone Hcl Immed Release 5 Mg Tablet) 5 mg PO Q6H PRN PRN Reason: Pain, Severe (Pain Scale 7-10) Last Admin: 04/25/22 20:00 Dose: 5 mg Polyethylene Glycol (Polyethylene Glycol 3350 17 Gm Powd.Pack) 17 gm PO DAILY [facility] Last Admin: 04/25/22 09:08 Dose: 17 gm Senna/Docusate Sodium (Sennosides/Docusate Sodium Tablet) 1 tab PO DAILY [facility] Last Admin: 04/25/22 09:07 Dose: 1 tab Trazodone HCl (Trazodone Hcl 50 Mg Tablet) 50 mg PO BEDTIME PRN PRN Reason: Insomnia Last Admin: 04/20/22 20:34 Dose: 50 mg Allergies Allergies Allergy/AdvReac Type Severity Reaction Status Date / Time No Known Allergies Allergy Unverified 03/16/20 18:37 Assessment & Plan Assessment & Plan (1) Schizoaffective disorder, depressive type: Status: Acute Code(s): F25.1 - Schizoaffective disorder, depressive type (2) Opioid use disorder: Status: Acute Code(s): F11.90 - Opioid use, unspecified, uncomplicated (3) Polysubstance abuse: Status: Acute Code(s): F19.10 - Other psychoactive substance abuse, uncomplicated Plan Oneyda is a 37 y.o. female who carries a dx of schizoaffective disorder and opioid use disorder. She presented to [facility] on 04/19/22 due to being administratively discharged from respite 4 or 5 days after non-adherence with her medications and becoming paranoid and agitated. She told crisis workers that she believes ?people are attacking me,? observed to be responding to internal stimuli. Pt also reports increasing anxiety and depression due to the of a friend 2 weeks ago to an overdose. She is also missing her son (resides with father, hx of foster care). On admission, started on intuniv 1 mg QAM and clonidine 0.1 mg QHS, vitals wnl. Has additional clonidine 0.1 mg BID PRN dose for hyperarousal, agitation. Will start ativan 1 mg BID PRN for agitation, anxiety. Pt understands this is a controlled substance. She is on methadone, which makes this medication not ideal. However, she is highly mistrustful of medication and providers and she is in a controlled/ structured environment, thus benefit may outweigh risk in order to promote collaboration, engagement, and buy-in for further med management. 04/21: Placed consult with hospitalist for hemorrhoids 04/22: Pt given oxycodone, lidocaine gel for hemorrhoids. Asks for ensure with her meals. Will start haldol 5 mg BID for paranoid thoughts, mood stability and schedule ativan 1 mg BID for her anxiety, agitation. 04/23: continue to monitor benefit on medication 04/24 although patient remains she is consistently demonstrating significantly improved behavior and impulse control and has 04/25 pt irritable, guarded and easily offended/angered but...significantly improved since admission and has been able to demonstrate good behavior and impulse control. Today, even though offended she redirected herself, excusing herself from the room rather than getting out of control or yelling. Plan is to taper off Ativan and oxy. Refuses increase of Haldol and initially said she is not sure she will remain on it. However automotive service writer explained how this is very lik laura the reason she is doing better and patient said she will continue to stay on it. 04/26 patient not so interested in 1:1 meetings however remains in good behavioral to impulse control on the unit and appropriate with peers and staff; lidocaine gel adequate for hemorrhoid and automotive service writer explained oxycodone is going to be discontinued PLAN: Q15 min safety checks, CV Haldol 5mg BID lowering to ativan 0.5mg TID Q15 min safety checks, CV Monitor response to medications. Monitor for safety in the milieu. Discharge on stabilization. Patient seen. Chart reviewed. Discussed with team. Obtain collateral contact info?as needed I spent minutes with the patient and/or on the patient floor today, greater than?50% of which was spent counseling/coordinating care. Patient educated on: diagnosis, medication risk/benefits and medical condition Informed Consent: understands, does not understand and further education needed Reason for contiued inpatient stay Substantial Risk for: stable for discharge
[2022-04-26] MEDS: HaloperidoL 5 MG TABLET PO ×2 (08:50→20:12)
[2022-04-26] MEDS: Sennosides/Docusate Sodium TABLET 1 TAB PO (08:50)
[2022-04-26] MEDS: LORazepam 1 MG TABLET PO ×2 (08:50→20:12)
[2022-04-26] MEDS: methADONE HCl 20 MG/2 ML ORAL.CONC 25 MG PO (08:51)
[2022-04-26] MEDS: Mineral Oil/Petrolatum,White 106 GM Tube 1 APPL TOPICAL (08:54)
[2022-04-26] MEDS: Lidocaine 5 % Ointment 35 GM 1 APPL TOPICAL (08:54)
[2022-04-26] MEDS: Hydrocortisone 2.5 % Rectal Cr 30 GM TUBE 1 APPL PR (08:54)
[2022-04-26] MEDS: Ammonium Lactate 12 % Cream 140 GM TUBE 1 APPL TOPICAL (08:55)
[2022-04-26] MEDS: guanFACINE HCl ER 1 MG TAB.ER.24H PO (09:22)
[2022-04-26] MEDS: oxyCODONE HCl Immed Release 5 MG TABLET PO (10:58)
[2022-04-26] MEDS: LORazepam 0.5 MG TABLET PO (16:08)
[2022-04-26] MEDS: traZODone HCL 50 MG TABLET PO (20:12)
[2022-04-26] MEDS: cloNIDine HCL 0.1 MG TABLET PO (20:13)
[2022-04-26 20:25] VITALS: BP 135/78; PULSE 80
[2022-04-27] MEDS: guanFACINE HCl ER 1 MG TAB.ER.24H PO (09:37)
[2022-04-27] MEDS: Sennosides/Docusate Sodium TABLET 1 TAB PO (09:38)
[2022-04-27] MEDS: methADONE HCl 20 MG/2 ML ORAL.CONC 25 MG PO (09:38)
[2022-04-27] MEDS: LORazepam 0.5 MG TABLET PO ×3 (09:38→17:41)
[2022-04-27] MEDS: HaloperidoL 5 MG TABLET PO ×2 (09:38→23:04)
--- NOTE | 2022-04-27 11:46 | HO.PSYCHPN ---
Subjective Subjective Date of Service: 04/27/22 Reason For Visit: crisis Interim History: Patient seen and discussed. Approached on two occasions to interview. Patient was dismissive of this specifications writer and refused interview. Per nursing however, better than when she first arrived. Medication compliant. She offered no complaints. Mood and affect are irritable. Patient remains in overall good behavioral and impulse control, appropriate with peers and staff on the unit. Review of Systems Review of Systems General: No fevers, malaise, unintentional weight loss Cardiovascular: No chest pain, palpitations, or leg edema Respiratory: No shortness of breath, wheezing, cough GI: +chronic constipation, +hemorrhoid, +BRBPR. No abdominal pain, nausea, vomiting, diarrhea, melena Neuro: No headaches, weakness, paresthesias Skin: No rashes or lesions Yes all other systems are reviewed and are negative Constitutional: Reports as per HPI and Denies fever(s) Eyes: Reports as per HPI and Reports no additional eye complaints Reports system reviewed and no additional complaints, except as documented, Reports as per HPI, Denies nasal congestion, Denies nasal discharge and Denies sore throat Cardiovascular: Reports as per HPI, Denies chest pain and Denies dyspnea Respiratory: Reports as per HPI, Denies cough and Denies dyspnea Gastrointestinal: Reports as per HPI, Denies abdominal pain, Denies diarrhea and Denies vomiting Musculoskeletal: Reports no additional musculoskeletal complaints and Denies numbness Skin/Breast: Reports as per HPI and Denies rash Reports as per HPI, Denies focal weakness and Denies numbness Psychiatric: Reports no additional psychiatric complaints and Reports as per HPI Endocrine: Reports no additional endocrine complaints and Reports as per HPI Hematologic/Lymphatic: Reports no additional hematologic/lymphatic complaints, Reports as per HPI and Reports other (No peripheral edema) Mental Status Exam Mental Status Exam Narrative: Pt is alert and oriented; behavior is guarded and irritable but less so; patient is not in distress; dressed in casual attire, adequately groomed; mood is described as fine and affect constricted; eye contact appropriate, sometimes intense; Speech is normal rate, volume and prosody and not pressured; some psychomotor agitation present; thought process is goal directed; Thought content is on her specific needs; easily irritated; on tx; no delusional content or paranoid ideations expressed; denies any SI/HI. There is no evidence of perceptual disturbance and she denies AVH; Patients insight and judgment are impaired but adequate. Diagnostics Vital Signs (24Hr): Vital Signs - 24 hr 04/26/22 20:25 Pulse Rate 80 Blood Pressure 135/78 BMI result Body Mass Index 35.8 Labs Results: 04/24/22 09:02 04/19/22 20:23 Medications Medications Current Medications Acetaminophen (Acetaminophen 325 Mg Tablet) 650 mg PO Q6H PRN PRN Reason: Headache/Pain Mild Scale (1-3) Last Admin: 04/25/22 14:08 Dose: 650 mg Al Hydroxide/Mg Hydroxide (Magnesium Hydrox/Alum Hydrox 30 Ml Oral.Susp) 30 ml PO Q6H PRN PRN Reason: Heartburn/Nausea Benzocaine (Benzocaine 20 % Oral Gel 9 Gm Tube) 1 appl MUCOUS MEM QID PRN PRN Reason: dental pain Clonidine HCl (Clonidine Hcl 0.1 Mg Tablet) 0.1 mg PO BEDTIME KALINA; Protocol Last Admin: 04/26/22 20:13 Dose: 0.1 mg Clonidine HCl (Clonidine Hcl 0.1 Mg Tablet) 0.1 mg PO BID PRN; Protocol PRN Reason: Anxiety Last Admin: 04/23/22 19:31 Dose: 0.1 mg Diphenhydramine HCl (Diphenhydramine Hcl 25 Mg Capsule) 50 mg PO Q4H PRN PRN Reason: agitation Guanfacine HCl (Guanfacine Hcl Er 1 Mg Tab.Er.24h) 1 mg PO DAILY KALINA Last Admin: 04/27/22 09:37 Dose: 1 mg Haloperidol (Haloperidol 5 Mg Tablet) 5 mg PO BID KALINA Last Admin: 04/27/22 09:38 Dose: 5 mg Hydrocortisone (Hydrocortisone 2.5 % Rectal Cr 30 Gm Tube) 1 appl MA BID KALINA Stop: 04/28/22 20:59 Last Admin: 04/27/22 10:42 Dose: Not Given Hydroxyzine HCl (Hydroxyzine Hcl 25 Mg Tablet) 25 mg PO Q6H PRN PRN Reason: Anxiety Last Admin: 04/22/22 12:05 Dose: 25 mg Ibuprofen (Ibuprofen 800 Mg Tablet) 800 mg PO TIDWM PRN PRN Reason: Pain, Moderate (Pain Scale 4-6 Last Admin: 04/25/22 14:07 Dose: 800 mg Lactic Acid (Ammonium Lactate 12 % Cream 140 Gm Tube) 1 appl TOPICAL BID PRN PRN Reason: Dry Skin Last Admin: 04/26/22 08:55 Dose: 1 appl Lidocaine (Lidocaine 5 % Ointment 35 Gm) 1 appl TOPICAL Q4H PRN; Protocol PRN Reason: Hemorrhoids Last Admin: 04/26/22 08:54 Dose: 1 appl Lorazepam (Lorazepam 1 Mg Tablet) 2 mg PO Q4H PRN PRN Reason: agitation Last Admin: 04/22/22 13:43 Dose: 2 mg Lorazepam (Lorazepam 0.5 Mg Tablet) 0.5 mg PO TID@0900,1300,1700 [facility] Last Admin: 04/27/22 09:38 Dose: 0.5 mg Magnesium Hydroxide (Milk Of Magnesia 30 Ml Oral.Susp) 30 ml PO DAILY PRN PRN Reason: Constipation Last Admin: 04/20/22 14:17 Dose: 30 ml Methadone HCl (Methadone Hcl 20 Mg/2 Ml Oral.Conc) 25 mg PO DAILY [facility] Last Admin: 04/27/22 09:38 Dose: 25 mg Multi-Ingred Cream/Lotion/Oil/Oint (Mineral Oil/Petrolatum,White 106 Gm Tube) 1 appl TOPICAL QID PRN PRN Reason: eczema Last Admin: 04/26/22 08:54 Dose: 1 appl Olanzapine (Olanzapine 5 Mg Tablet) 5 mg PO Q4H PRN PRN Reason: moderate anxiety Polyethylene Glycol (Polyethylene Glycol 3350 17 Gm Powd.Pack) 17 gm PO DAILY [facility] Last Admin: 04/27/22 10:42 Dose: Not Given Senna/Docusate Sodium (Sennosides/Docusate Sodium Tablet) 1 tab PO DAILY [facility] Last Admin: 04/27/22 09:38 Dose: 1 tab Trazodone HCl (Trazodone Hcl 50 Mg Tablet) 50 mg PO BEDTIME PRN PRN Reason: Insomnia Last Admin: 04/26/22 20:12 Dose: 50 mg Allergies Allergies Allergy/AdvReac Type Severity Reaction Status Date / Time No Known Allergies Allergy Unverified 03/16/20 18:37 Assessment & Plan Assessment & Plan (1) Schizoaffective disorder, depressive type: Status: Acute Code(s): F25.1 - Schizoaffective disorder, depressive type (2) Opioid use disorder: Status: Acute Code(s): F11.90 - Opioid use, unspecified, uncomplicated (3) Polysubstance abuse: Status: Acute Code(s): F19.10 - Other psychoactive substance abuse, uncomplicated Plan Oneyda is a 37 y.o. female who carries a dx of schizoaffective disorder and opioid use disorder. She presented to [facility] on 04/19/22 due to being administratively discharged from respite 4 or 5 days after non-adherence with her medications and becoming paranoid and agitated. She told crisis workers that she believes ?people are attacking me,? observed to be responding to internal stimuli. Pt also reports increasing anxiety and depression due to the of a friend 2 weeks ago to an overdose. She is also missing her son (resides with father, hx of foster care). On admission, started on intuniv 1 mg QAM and clonidine 0.1 mg QHS, vitals wnl. Has additional clonidine 0.1 mg BID PRN dose for hyperarousal, agitation. Will start ativan 1 mg BID PRN for agitation, anxiety. Pt understands this is a controlled substance. She is on methadone, which makes this medication not ideal. However, she is highly mistrustful of medication and providers and she is in a controlled/ structured environment, thus benefit may outweigh risk in order to promote collaboration, engagement, and buy-in for further med management. 04/21: Placed consult with hospitalist for hemorrhoids 04/22: Pt given oxycodone, lidocaine gel for hemorrhoids. Asks for ensure with her meals. Will start haldol 5 mg BID for paranoid thoughts, mood stability and schedule ativan 1 mg BID for her anxiety, agitation. 04/23: continue to monitor benefit on medication 04/24 although patient remains she is consistently demonstrating significantly improved behavior and impulse control and has 04/25 pt irritable, guarded and easily offended/angered but...significantly improved since admission and has been able to demonstrate good behavior and impulse control. Today, even though offended she redirected herself, excusing herself from the room rather than getting out of control or yelling. Plan is to taper off Ativan and oxy. Refuses increase of Haldol and initially said she is not sure she will remain on it. However specifications writer explained how this is very likely the reason she is doing better and patient said she will continue to stay on it. 04/26 patient not so interested in 1:1 meetings however remains in good behavioral to impulse control on the unit and appropriate with peers and staff; lidocaine gel adequate for hemorrhoid and specifications writer explained oxycodone is going to be discontinued 04/27: Irritable and dismissive. Per nursing however, better than when she arrived. Medication compliant. PLAN: Q15 min safety checks, CV Haldol 5mg BID lowering to ativan 0.5mg TID Q15 min safety checks, CV Monitor response to medications. Monitor for safety in the milieu. Discharge on stabilization. Patient seen. Chart reviewed. Discussed with team. Obtain collateral contact info?as needed I spent minutes with the patient and/or on the patient floor today, greater than?50% of which was spent counseling/coordinating care. Reason for contiued inpatient stay Substantial Risk for: harm to others, inability to function and rapid decompensation
[2022-04-27] MEDS: Ammonium Lactate 12 % Cream 140 GM TUBE 1 APPL TOPICAL (17:37)
[2022-04-27 22:30] VITALS: BP 133/82; PULSE 62; TEMP 35.6
[2022-04-27] MEDS: cloNIDine HCL 0.1 MG TABLET PO (23:04)
[2022-04-28 08:25] VITALS: BP 128/78; PULSE 72; RESP 18; TEMP 37.1; O2SAT 96
[2022-04-28] MEDS: methADONE HCl 20 MG/2 ML ORAL.CONC 25 MG PO (09:12)
[2022-04-28] MEDS: LORazepam 0.5 MG TABLET PO ×3 (09:15→22:03)
[2022-04-28] MEDS: guanFACINE HCl ER 1 MG TAB.ER.24H PO (09:15)
[2022-04-28] MEDS: Sennosides/Docusate Sodium TABLET 1 TAB PO (09:15)
[2022-04-28] MEDS: HaloperidoL 5 MG TABLET PO (09:15)
[2022-04-28] MEDS: Hydrocortisone 2.5 % Rectal Cr 30 GM TUBE 1 APPL PR (09:16)
[2022-04-28] MEDS: polyethylene glycoL 3350 17 GM POWD.PACK PO (09:17)
[2022-04-28] MEDS: Mineral Oil/Petrolatum,White 106 GM Tube 1 APPL TOPICAL ×2 (09:17→17:22)
--- NOTE | 2022-04-28 14:50 | P.PNPSI_ITS ---
Subjective Subjective Date of Service: 04/28/22 Reason For Visit: crisis Interim History: Patient seen and discussed. Patient was angry today and perseverating on wanting a pencil to draw with. She escalated and was swearing nd yelling when it was explained to her by staff that sharps can be a danger to others on the unit. Patient had a difficult time accepting limits. She finally calmed with staff intervention only to return to the subject and escalate. Generally however, better than when she first arrived. Medication compliant. Mood and affect are irritable. Review of Systems Review of Systems General: No fevers, malaise, unintentional weight loss Cardiovascular: No chest pain, palpitations, or leg edema Respiratory: No shortness of breath, wheezing, cough GI: +chronic constipation, +hemorrhoid, +BRBPR. No abdominal pain, nausea, vomiting, diarrhea, melena Neuro: No headaches, weakness, paresthesias Skin: No rashes or lesions Yes all other systems are reviewed and are negative Constitutional: Reports as per HPI and Denies fever(s) Eyes: Reports as per HPI and Reports no additional eye complaints Reports system reviewed and no additional complaints, except as documented, Reports as per HPI, Denies nasal congestion, Denies nasal discharge and Denies sore throat Cardiovascular: Reports as per HPI, Denies chest pain and Denies dyspnea Respiratory: Reports as per HPI, Denies cough and Denies dyspnea Gastrointestinal: Reports as per HPI, Denies abdominal pain, Denies diarrhea and Denies vomiting Musculoskeletal: Reports no additional musculoskeletal complaints and Denies numbness Skin/Breast: Reports as per HPI and Denies rash Reports as per HPI, Denies focal weakness and Denies numbness Psychiatric: Reports no additional psychiatric complaints and Reports as per HPI Endocrine: Reports no additional endocrine complaints and Reports as per HPI Hematologic/Lymphatic: Reports no additional hematologic/lymphatic complaints, Reports as per HPI and Reports other (No peripheral edema) Mental Status Exam Mental Status Exam Narrative: Pt is alert and oriented; behavior is guarded and irritable but less so; patient is not in distress; dressed in casual attire, adequately groomed; mood is described as fine and affect constricted; eye contact appropriate, sometimes intense; Speech is normal rate, volume and prosody and not pressured; some psychomotor agitation present; thought process is goal directed; Thought content is on her specific needs; easily irritated; on tx; no delusional content or paranoid ideations expressed; denies any SI/HI. There is no evidence of perceptual disturbance and she denies AVH; Patients insight and judgment are impaired but adequate. Diagnostics Vital Signs (24Hr): Vital Signs - 24 hr 04/27/22 22:30 04/28/22 08:25 Temperature 96.1 F L 98.7 F Pulse Rate 62 72 Respiratory Rate 18 Blood Pressure 133/82 128/78 Pulse Oximetry 96 Oxygen Delivery Method Room Air BMI result Body Mass Index 35.8 Labs Results: 04/24/22 09:02 04/19/22 20:23 Medications Medications Current Medications Acetaminophen (Acetaminophen 325 Mg Tablet) 650 mg PO Q6H PRN PRN Reason: Headache/Pain Mild Scale (1-3) Last Admin: 04/25/22 14:08 Dose: 650 mg Al Hydroxide/Mg Hydroxide (Magnesium Hydrox/Alum Hydrox 30 Ml Oral.Susp) 30 ml PO Q6H PRN PRN Reason: Heartburn/Nausea Benzocaine (Benzocaine 20 % Oral Gel 9 Gm Tube) 1 appl MUCOUS MEM QID PRN PRN Reason: dental pain Clonidine HCl (Clonidine Hcl 0.1 Mg Tablet) 0.1 mg PO BEDTIME KALINA; Protocol Last Admin: 04/27/22 23:04 Dose: 0.1 mg Clonidine HCl (Clonidine Hcl 0.1 Mg Tablet) 0.1 mg PO BID PRN; Protocol PRN Reason: Anxiety Last Admin: 04/28/22 16:10 Dose: 0.1 mg Diphenhydramine HCl (Diphenhydramine Hcl 25 Mg Capsule) 50 mg PO Q4H PRN PRN Reason: agitation Guanfacine HCl (Guanfacine Hcl Er 1 Mg Tab.Er.24h) 1 mg PO DAILY KALINA Last Admin: 04/28/22 09:15 Dose: 1 mg Haloperidol (Haloperidol 5 Mg Tablet) 5 mg PO BID KALINA Last Admin: 04/28/22 09:15 Dose: 5 mg Hydrocortisone (Hydrocortisone 2.5 % Rectal Cr 30 Gm Tube) 1 appl NV BID KALINA Stop: 04/28/22 20:59 Last Admin: 04/28/22 09:16 Dose: 1 appl Hydroxyzine HCl (Hydroxyzine Hcl 25 Mg Tablet) 25 mg PO Q6H PRN PRN Reason: Anxiety Last Admin: 04/28/22 16:10 Dose: 25 mg Ibuprofen (Ibuprofen 800 Mg Tablet) 800 mg PO TIDWM PRN PRN Reason: Pain, Moderate (Pain Scale 4-6 Last Admin: 04/25/22 14:07 Dose: 800 mg Lactic Acid (Ammonium Lactate 12 % Cream 140 Gm Tube) 1 appl TOPICAL BID PRN PRN Reason: Dry Skin Last Admin: 04/28/22 17:23 Dose: 1 appl Lidocaine (Lidocaine 5 % Ointment 35 Gm) 1 appl TOPICAL Q4H PRN; Protocol PRN Reason: Hemorrhoids Last Admin: 04/26/22 08:54 Dose: 1 appl Lorazepam (Lorazepam 1 Mg Tablet) 2 mg PO Q4H PRN PRN Reason: agitation Last Admin: 04/22/22 13:43 Dose: 2 mg Lorazepam (Lorazepam 0.5 Mg Tablet) 0.5 mg PO TID@0900,1300,1700 [facility]END[facility] TO [facility] Last Admin: 04/28/22 12:10 Dose: 0.5 mg Magnesium Hydroxide (Milk Of Magnesia 30 Ml Oral.Susp) 30 ml PO DAILY PRN PRN Reason: Constipation Last Admin: 04/20/22 14:17 Dose: 30 ml Methadone HCl (Methadone Hcl 20 Mg/2 Ml Oral.Conc) 25 mg PO DAILY [facility] Last Admin: 04/28/22 09:12 Dose: 25 mg Multi-Ingred Cream/Lotion/Oil/Oint (Mineral Oil/Petrolatum,White 106 Gm Tube) 1 appl TOPICAL QID PRN PRN Reason: eczema Last Admin: 04/28/22 17:22 Dose: 1 appl Olanzapine (Olanzapine 5 Mg Tablet) 5 mg PO Q4H PRN PRN Reason: moderate anxiety Polyethylene Glycol (Polyethylene Glycol 3350 17 Gm Powd.Pack) 17 gm PO DAILY [facility] Last Admin: 04/28/22 09:17 Dose: 17 gm Senna/Docusate Sodium (Sennosides/Docusate Sodium Tablet) 1 tab PO DAILY [facility] Last Admin: 04/28/22 09:15 Dose: 1 tab Trazodone HCl (Trazodone Hcl 50 Mg Tablet) 50 mg PO BEDTIME PRN PRN Reason: Insomnia Last Admin: 04/26/22 20:12 Dose: 50 mg Allergies Allergies Allergy/AdvReac Type Severity Reaction Status Date / Time No Known Allergies Allergy Unverified 03/16/20 18:37 Assessment & Plan Assessment & Plan (1) Schizoaffective disorder, depressive type: Status: Acute Code(s): F25.1 - Schizoaffective disorder, depressive type (2) Opioid use disorder: Status: Acute Code(s): F11.90 - Opioid use, unspecified, uncomplicated (3) Polysubstance abuse: Status: Acute Code(s): F19.10 - Other psychoactive substance abuse, uncomplicated Plan Oneyda is a 37 y.o. female who carries a dx of schizoaffective disorder and opioid use disorder. She presented to [facility] on 04/19/22 due to being administratively discharged from respite 4 or 5 days after non-adherence with her medications and becoming paranoid and agitated. She told crisis workers that she believes ?people are attacking me,? observed to be responding to internal stimuli. Pt also reports increasing anxiety and depression due to the of a friend 2 weeks ago to an overdose. She is also missing her son (resides with father, hx of foster care). On admission, started on intuniv 1 mg QAM and clonidine 0.1 mg QHS, vitals wnl. Has additional clonidine 0.1 mg BID PRN dose for hyperarousal, agitation. Will start ativan 1 mg BID PRN for agitation, anxiety. Pt understands this is a controlled substance. She is on methadone, which makes this medication not ideal. However, she is highly mistrustful of medication and providers and she is in a controlled/ structured environment, thus benefit may outweigh risk in order to promote collaboration, engagement, and buy-in for further med management. 04/21: Placed consult with hospitalist for hemorrhoids 04/22: Pt given oxycodone, lidocaine gel for hemorrhoids. Asks for ensure with her meals. Will start haldol 5 mg BID for paranoid thoughts, mood stability and schedule ativan 1 mg BID for her anxiety, agitation. 04/23: continue to monitor benefit on medication 04/24 although patient remains she is consistently demonstrating significantly improved behavior and impulse control and has 04/25 pt irritable, guarded and easily offended/angered but...significantly improved since admission and has been able to demonstrate good behavior and impulse control. Today, even though offended she redirected herself, excusing herself from the room rather than getting out of control or yelling. Plan is to taper off Ativan and oxy. Refuses increase of Haldol and initially said she is not sure she will remain on it. However fiction and nonfiction writer prose explained how this is very li estevan the reason she is doing better and patient said she will continue to stay on it. 04/26 patient not so interested in 1:1 meetings however remains in good behavioral to impulse control on the unit and appropriate with peers and staff; lidocaine gel adequate for hemorrhoid and fiction and nonfiction writer prose explained oxycodone is going to be discontinued 04/27: Irritable and dismissive. Per nursing however, better than when she arrived. Medication compliant. 04/28: Continue treatment plan. PLAN: Q15 min safety checks, CV Haldol 5mg BID lowering to ativan 0.5mg TID Q15 min safety checks, CV Monitor response to medications. Monitor for safety in the milieu. Discharge on stabilization. Patient seen. Chart reviewed. Discussed with team. Obtain collateral contact info?as needed I spent minutes with the patient and/or on the patient floor today, greater than?50% of which was spent counseling/coordinating care. Reason for contiued inpatient stay Substantial Risk for: harm to others and rapid decompensation
[2022-04-28] MEDS: hydrOXYzine HCL 25 MG TABLET PO ×2 (16:10→23:12)
[2022-04-28] MEDS: cloNIDine HCL 0.1 MG TABLET PO ×2 (16:10→23:12)
[2022-04-28] MEDS: Ammonium Lactate 12 % Cream 140 GM TUBE 1 APPL TOPICAL (17:23)
[2022-04-28 18:00] VITALS: RESP 16
[2022-04-28] MEDS: Lidocaine 5 % Ointment 35 GM 1 APPL TOPICAL (22:09)
[2022-04-29] MEDS: guanFACINE HCl ER 1 MG TAB.ER.24H PO (09:28)
[2022-04-29] MEDS: methADONE HCl 20 MG/2 ML ORAL.CONC 25 MG PO (09:28)
[2022-04-29] MEDS: LORazepam 0.5 MG TABLET PO ×2 (09:28→12:47)
[2022-04-29] MEDS: Naloxone HCl Nasal TAKE HOME 4 MG SPRAY NOSTRILALT (12:52)
--- NOTE | 2022-04-29 12:56 | PM.PSYDC ---
DS: Providers Provider Date of Service: 04/29/22 Date of admission: 04/19/22 22:52 Date of discharge: 04/29/22 Primary care physician: Unknown Physician Admitting clinician: Emma Green Consults: 04/21/22 17:14 Consult to Hospitalist Routine Consulting Provider: Hospitalist Reason For Exam: hemorrhoid pain Attending physician on discharge: Nakul Calix DS: Diagnosis Discharge Diagnosis (1) Schizoaffective disorder, depressive type: Status: Acute (2) Opioid use disorder: Status: Acute (3) Polysubstance abuse: Status: Acute DS: Medications Discharge Medications Home Medications: Previous Rx's Medication Instructions Recorded ammonium lactate 12 % topical cream 1 appl topical BID PRN Dry Skin 30 04/29/22 days #280 grams clonidine HCl 0.1 mg tablet 0.1 mg PO BID PRN Anxiety/insomnia 04/29/22 30 days #60 tabs guanfacine 1 mg tablet,extended 1 mg PO QAM 30 days #30 tabs 04/29/22 release 24 hr (Intuniv ER) haloperidol 5 mg tablet 5 mg PO BID 30 days #60 tabs 04/29/22 hydroxyzine pamoate 25 mg capsule 25 mg PO TID PRN Anxiety 30 days 04/29/22 #60 caps lidocaine 5 % topical ointment 1 appl topical Q4H PRN Hemorrhoids 04/29/22 30 days #35.44 grams lorazepam 0.5 mg tablet 0.5 mg PO TID PRN agitation 7 days 04/29/22 #21 tabs methadone 10 mg/mL oral 25 mg (2.5 mL) PO DAILY #0 mL 04/29/22 concentrate (Methadose) polyethylene glycol 3350 17 gram 17 g PO DAILY 30 days #30 ea 04/29/22 oral powder packet sennosides 8.6 mg-docusate sodium 1 tab PO DAILY 30 days #30 tabs 04/29/22 50 mg tablet (Senna Plus) white petrolatum-mineral oil 1 appl topical QID PRN eczema 30 04/29/22 topical cream (Dermacerin topical days #454 grams cream) Mental Status Exam Mental Status Exam Narrative: Pt is alert and oriented; behavior is guarded and irritable but less so; patient is not in distress; dressed in casual attire, adequately groomed; mood is described as fine and affect constricted; eye contact appropriate, sometimes intense; Speech is normal rate, volume and prosody and not pressured; some psychomotor agitation present; thought process is goal directed; Thought content is on her specific needs; easily irritated; on tx; no delusional content or paranoid ideations expressed; denies any SI/HI. There is no evidence of perceptual disturbance and she denies AVH; Patients insight and judgment are impaired but adequate. Data Data Completed and Pending Completed studies during hospitalization [Text1]: 04/23/22 04/24/22 08:13 09:02 WBC 8.3 8.9 RBC 3.48 L 3.65 L Hgb 11.1 L 11.9 L Hct 32.7 L 33.6 L MCV 94.0 92.1 MCH 31.9 32.6 MCHC 33.9 35.4 H RDW 13.1 12.8 Plt Count 244 269 MPV 11.1 10.9 Immature Gran % (Auto) 0.4 0.3 Neut % (Auto) 55.9 56.3 Lymph % (Auto) 30.0 32.6 Clinch % (Auto) 10.1 7.6 Eos % (Auto) 2.9 2.5 Baso % (Auto) 0.7 0.7 Lymph # (Auto) 2.5 2.9 Clinch # (Auto) 0.8 0.7 Eos # (Auto) 0.2 0.2 Baso # (Auto) 0.1 0.1 Abs Immat Gran (auto) 0.03 0.03 Absolute Neuts (auto) 4.6 5.0 Absolute Nucleated RBC 0.000 0.000 Nucleated RBC % (auto) 0.0 0.0 DS: Summary Hospital Course Hospital Course: HPI: Oneyda is a 37 y.o. female who carries a dx of schizoaffective disorder and opioid use disorder, on methadone. She presented to [facility] ED on 04/19/22 due to being administratively discharged from respite 4 or 5 days after non-adherence with her medications and becoming paranoid and agitated. She told crisis workers that she believes ?people are attacking me,? observed to be responding to internal stimuli. Pt also reports increasing anxiety and depression due to the of a friend 2 weeks ago to an overdose. She is also missing her son (resides with father, hx of foster care). Hospital course: On admission,Patient was agitated, easily angered and disorganized, yelling at peers and staff.? Admitting provider started her on Intuniv for ADHD; also on clonidine and Ativan for agitation given that she was refusing other medication (this was tapered and discontinued prior to DC).? Hospitalist also started her on oxycodone for her hemorrhoids which was eventually discontinued and replaced with lidocaine gel which was affective. ?Patient was willing to start Haldol for paranoid thinking and disorganized behavior which proved helpful.? Soon after this medication was started, she began consistently demonstrating significantly improved behavior and impulse control. She still remained guarded and easily offended, but was mostly able to demonstrate good behavior; even when getting triggered, would redirect herself and keep herself in good control. Patient had limited tolerability for 1 on 1 sessions however attended groups and remained with appropriate behavior. ?Patient continued to deny any SI or HI.? She also did denied AVH.? [employer] offered increased Haldol for her continued irritability; Patient refused any increase but agreed to continue it after discharge. It was patient's goal to remain sober and she wanted to get into a program however none accepted her. ?As no program available, patient asked for discharge; she was worried about relapse, but resigned herself to pursue sobriety. ?While patient remains vulnerable to relapse and dysregulation at some point, these are chronic issues for her and will not resolve with longer stay on inpatient unit.? Patient is not in imminent risk of harm to self or others and her request for discharge honored. Time spent discussing smoking cessation with patient: 3 to 10 minutes Status at Discharge Functional status at discharge: independent ambulation Overall status at discharge: patient is back to baseline Time Spent with Patient Time attestation: Total time spent providing and/or coordinating discharge services: Time spent: Greater than 30 minutes Discharge Plan Discharge Anticipated Discharge Date/Time: 04/29/22 13:00 Patient Disposition: Halfway Discharge Diagnosis: Schizoaffective disorder, bipolar type Referrals: TSS: [facility] [Other] - 1 Week (Dial extension 1979 for intake ) CSS: [facility] [Other] - 1 Week ([facility] for Substance Abuse programs intake ) CSS: [facility] [Other] - 1 Week Physician,Phillip J [Primary Care Provider] - 1 Week Discharge Medications: New haloperidol 5 mg Tablet 5 mg PO BID 30 Days Qty: 60 0RF methadone [Methadose] 10 mg/mL Concentrate 25 mg PO DAILY Qty: 0 0RF Rx Instructions: Partial Fill upon patient request. polyethylene glycol 3350 17 gram Powder In Packet 17 g PO DAILY 30 Days Qty: 30 0RF sennosides-docusate sodium [Senna Plus] 8.6-50 mg Tablet 1 tab PO DAILY 30 Days Qty: 30 0RF lidocaine 5 % Ointment 1 appl topical Q4H PRN (Reason: Hemorrhoids) 30 Days Qty: 35.44 0RF Protocol: Apply to: Apply to: perianal area lorazepam 0.5 mg Tablet 0.5 mg PO TID PRN (Reason: agitation) 7 Days Qty: 21 1RF ammonium lactate 12 % Cream 1 appl topical BID PRN (Reason: Dry Skin) 30 Days Qty: 280 0RF Dermacerin Cream 1 appl topical QID PRN (Reason: eczema) 30 Days Qty: 454 0RF Changed clonidine HCl 0.1 mg tablet 0.1 mg PO BID PRN (Reason: Anxiety/insomnia) 30 Days Qty: 60 0RF hydroxyzine pamoate 25 mg capsule 25 mg PO TID PRN (Reason: Anxiety) 30 Days Qty: 60 0RF guanfacine [Intuniv ER] 1 mg tablet extended release 24 hr 1 mg PO QAM 30 Days Qty: 30 0RF Discontinued clonidine HCl 0.1 mg tablet 1 tab PO BEDTIME Discharge Orders: Discharge Order (Routine); Ordered 04/29/22 Ordered By: Nakul Calix Diet: Regular diet Activity on Discharge: As tolerated Stand Alone Forms: Patient Portal Discharge page Care Plan Goals: Maintain mood and safe behaviors Take medications as prescribed Continue to pursue sobriety Practice coping skills Continue with outpatient providers and reach out to them as needed Health Concerns: Mood stability and behaviors Sobriety Hemorrhoid Plan of Treatment: Follow up with your PCP, psychiatric provider and other outpatient providers regarding above concerns Take medications as prescribed Assessment: Risk assessment at time of discharge:? Patient was interviewed prior to discharge and found to be fully oriented and without any SI or HI. Patient has insight and demonstrates good judgment in terms of wanting to pursue treatment. Patient is not in imminent risk of harm to self or others and has a safety plan that includes presenting to the closest ER or calling 911 if feeling unsafe.? Patient has been observed closely by nursing and unit staff throughout admission; patient has not engaged in any behaviors that suggest dangerousness to self or others and has demonstrated appropriate behaviors and impulse control Discharge Date/Time: 04/29/22 15:45
== END 2022-04-29 15:45 | disposition home or self-care (01) | DRG 885 ==
LOC: HO.ED 17:23 → HO.PM5 22:59
PROVIDERS: Physician Assistant; Admitting Provider Registered Nurse; Emergency Provider Emergency Medicine; Visit Provider Psychiatry & Neurology Psychiatry
DX: F25.1 Schizoaffective disorder, depressive type (principal); F11.20 Opioid dependence, uncomplicated; K59.03 Drug induced constipation; F19.10 Other psychoactive substance abuse, uncomplicated; F17.210 Nicotine dependence, cigarettes, uncomplicated; Z20.822 Contact with and (suspected) exposure to COVID-19; Z71.6 Tobacco abuse counseling; Z79.899 Other long term (current) drug therapy
CPT/HCPCS: 36415; 80053; 80061; 80307; 81001; 82607; 82746; 83036; 83735; 84439; 84443; 85025; 87635; 90792; 99285